=== PATIENT | female | born 1970 | race Caucasian/White ===

== ENCOUNTER → 2021-05-24 15:02 | Outpatient (CLI) | payer OTHER, SELFPAY ==
--- NOTE | ~2021-05-24 | XR_ITS ---
XR abdomen/kub 1V DATE: 05/24/2021 15:51 INDICATION: Flank pain TECHNIQUE: AP projection, 2 views COMPARISON: None FINDINGS: Some left-sided calcified pelvic phleboliths are noted. No apparent urinary tract calcified calculus is identified. Noncontrast CT abdomen pelvis examination would be more sensitive for detection of urinary tract stones. The psoas shadows are intact. No visceromegaly is evident. The bowel gas pattern is unremarkable, without evidence of obstruction. Included skeletal structures are unremarkable. IMPRESSION: Nonspecific abdomen Reviewed, dictated and finalized at [facility]. Reviewed, dictated and finalized at location B. IMPRESSION: Nonspecific abdomen
== END ==
PROVIDERS: Visit Provider Nurse Practitioner Adult Health
DX: R10.9 Unspecified abdominal pain (principal)
CPT/HCPCS: 74018

== ENCOUNTER 2021-06-01 12:26 | Outpatient (CLI) | payer OTHER, SELFPAY ==
--- NOTE | ~2021-06-01 | NM_ITS ---
. EXAMINATION: JAMES wan renal scan DATE: 06/01/2021 13:53 INDICATION: Bilateral hydronephrosis. TECHNIQUE: 8 mCi Tc-99m MAG3 was administered IV. 40 mg furosemide was administered IV immediately a fterward. The patient was scanned in the supine position. A posterior abdominal radionuclide angiogra m was obtained. A subsequent time course of static images of the kidneys, ureters, and bladder was ob tained. COMPARISON: None FINDINGS: The posterior abdominal radionuclide angiogram and sequential static images show normal siz e, position, and morphology of the kidneys. Peak renal parenchymal uptake was 3 min in right kidney a nd 3 min in left kidney (normal peak 3-5 minutes). The relative early renal uptake was 52% on the ri ght and 48% on the left (<40% is abnormal). No abnormalities of the ureters or bladder are seen. T1/2 for clearance of activity from the right kidney and proximal collecting system was 8 minutes. T1/2 for clearance of activity from the left kidney and proximal collecting system was 9 minutes. Notes on interpretation: T1/2 <10 minutes is normal, 10-15 minutes is low grade obstruction of questi onable clinical significance, 15-20 minutes is partial obstruction that is likely clinically signific ant, >20 minutes is high grade obstruction. Note that false positives may be seen with supine positio rita, dehydration, severely dilated nonobstructed kidney, atonic collecting system, poor renal functi on, and chronic furosemide use. IMPRESSION: 1. Symmetric kidney function. 2. No delay in contrast clearance from either kidney to suggest fixed obstruction. Reviewed, dictated and finalized at location A. IMPRESSION: 1. Symmetric kidney function. 2. No delay in contrast clearance from either kidney to suggest fixed obstruct ion.
== END 2021-06-01 12:27 | disposition home or self-care (01) ==
LOC: ANHIMG 12:34
PROVIDERS: Visit Provider Nurse Practitioner Adult Health
DX: N13.30 Unspecified hydronephrosis (principal)
CPT/HCPCS: 78708; A9562; J1940

== ENCOUNTER 2022-01-03 13:34 | Outpatient (CLI) | payer OTHER, SELFPAY ==
--- NOTE | 2022-01-03 13:45 | ECG_ITS ---
Measurements Intervals [place] Rate: 63 P: 30 [place]: 165 QRS: -2 QRSD: 104 T: 22 QT: 400 QTc: 411 Interpretive Statements SINUS RHYTHM WITH SINUS ARRHYTHMIA POSSIBLE LEFT ATRIAL ENLARGEMENT [-0.1mV P WAVE IN V1/V2] LOW QRS VOLTAGE IN PRECORDIAL LEADS [QRS DEFLECTION < 1.0 mV IN CHEST LEADS] INCOMPLETE RIGHT BUNDLE BRANCH BLOCK [90+ ms QRS DURATION, TERMINAL R IN V1/V2, 40+ ms S IN I/aVL/V4/V5/V6] NO PREVIOUS ECG AVAILABLE FOR COMPARISON Electronically Signed On 01-03-2022 14:35:43 CDT by Scout Schuler M.D.
[2022-01-03 14:33] LABS: INR 1.1
[2022-01-03 14:34] LABS: Partial Thromboplastin Time 27.3 SECONDS (22.3-36.8)
== END 2022-01-03 13:35 | disposition home or self-care (01) ==
LOC: ANHSURGERY 13:37
PROVIDERS: PCP Internal Medicine; Visit Provider Urology
DX: Z01.812 Encounter for preprocedural laboratory examination (principal); N20.0 Calculus of kidney; I10 Essential (primary) hypertension; I45.10 Unspecified right bundle-branch block; Z51.81 Encounter for therapeutic drug level monitoring; Z79.899 Other long term (current) drug therapy
CPT/HCPCS: 36415; 85610; 85730; 87086; 87088; 93005

== ENCOUNTER 2022-01-07 04:26 | Day surgery (SDC) | payer OTHER, SELFPAY ==
[2022-01-03 10:04] VITALS: BMI 39.5
--- NOTE | 2022-01-03 10:29 | PC.NURSE ---
Report to the Outpatient Waiting Room, entrance under the green pavilion located off [facility], at time 8:00 on date 01/07/22. OR Time: 10:00. - You and your visitor will be asked a series of questions to screen for COVID 19 for your protection. - A mask is required within the hospital. One visitor will be allowed to accompany the patient into the hospital. Patients visitor will be instructed to remain with patient at all times or leave the building. We will allow the visitor to come back to the postoperative area when patient is ready. Preoperative COVID Testing Requirements: No COVID Test needed if: (proof is required; if not received patient will have Rapid Test prior to entry) - Patient has received COVID Vaccine at least 14 days prior to procedure date or - Patient has positive COVID test result within last 90 days of surgery date. COVID Test needed if above criteria is not met Patients may have clear liquids (water, carbonated beverages, clear teas, apple juice) until 3 hours prior to surgery (7:00) with a maximum of 20 ounces. - No food from midnight until time of surgery Take the following medications with a SIP of water the morning of surgery: ANASTROZOLE Medications to discontinue per physician: VITAMINS/SUPPLEMENTS Date to take last dose: 01/03/21 Please no make-up, nail egyptian, hairspray, perfume, deodorant, or body powder the day of surgery. No jewelry (including any body piercings) or valuables the day of surgery, leave them at home. Please take a shower or bath the night before, or the morning of, surgery with an antibacterial soap. Wear comfortable, loose fitting clothing. - Jewelry must be removed prior to entering the operating room. Rings and piercings that are not removed may be cut off. - The hospital will not accept responsibility for valuables. - Please leave all valuables, including medications, at home the day of surgery. If you are going home after surgery, a licensed cl[place] driver must drive you home. - NO public transportation without another adult. - We recommend that an adult stay with you for 24 hours following discharge. - We also recommend that you do not drive, make important decision, drink alcoholic beverages, or take any drugs that were not prescribed by your health care provider for at least 24 hours after your discharge time. Follow any additional instructions given to you from your surgeon. Telephone instructions given to EMILY HARDEN and asked if any additional questions and then verbalized understanding. Patient advised to call surgeon office or pre surgery nurse liaison [phone] if any additional questions.
--- NOTE | 2022-01-03 17:10 | P.HP_ITS ---
History of Present Illness History of Present Illness Consent: Risks, benefits, and alternatives have been discussed and questions answered. Patient agrees to proceed with procedure. Chief complaint: Rt Kidney Stones, Bilateral Hydronephrosis Narrative: Ivania Yu is a 51 year old female with a known history of urolithiasis. Recent follow-up imaging 1st with a KUB suggested bilateral renal calcifications that were confirmed by CT scan. On outpatient CT scan she has several stones in her right kidney up to 9 mm in stones in her left kidney up to 5-6 mm. After discussion of therapeutic options she has elected for repeat ESWL starting on the right side. She is aware the risks including, but not limited to, adverse cardiopulmonary events, kidney injury, hematuria. Review of Systems Cardiovascular: Cardiovascular: Denies chest pain, Denies lightheadedness, Denies palpitations and Denies dyspnea Respiratory: Respiratory: Denies dyspnea Gastrointestinal: Gastrointestinal: Denies diarrhea, Denies nausea and Denies vomiting Genitourinary: Genitourinary: Denies hematuria and Denies dysuria Endocrine: Endocrine: Denies palpitations PMFSH Past Medical History Medical History Breast cancer Hypertension Kidney stones Skin cancer Surgical History Surgical History History of bladder surgery History of 1995, 1996 History of hysterectomy 2015 History of shoulder surgery Right Shoulder, 2013 Hx of tonsillectomy Family History Family History Mother Family history of diabetes mellitus in first degree relative Father Family history of lung cancer Sibling Family history of malignant neoplasm of brain Other Family history of cardiovascular disease Social History Social History Smoking status: Never smoker Alcohol intake: current Alcohol use details: VERY RARE Substance use: never Substance use type: does not use Spiritual care concerns: No Meds Home Medications and Allergies Home Medications Medication Instructions Recorded Confirmed Type anastrozole 1 mg tablet 1 mg PO DAILY 07/26/21 01/03/22 History cholecalciferol (vitamin D3) 25 25 mcg PO DAILY 07/26/21 01/03/22 History mcg (1,000 unit) capsule loratadine 10 mg tablet 10 mg PO DAILY 07/26/21 01/03/22 History multivit with 1 tablet PO DAILY 07/26/21 01/03/22 History ghyultkg-axjl-LM-lutein 8 mg iron-400 mcg-300 mcg tablet olmesartan 20 mg tablet 20 mg PO DAILY 07/26/21 01/03/22 History Allergies Allergy/AdvReac Type Severity Reaction Status Date / Time No Known Allergies Allergy Verified 01/03/22 10:00 Exam Const: General: no acute distress Resp: Effort & Inspection: normal respiratory effort GI: Inspection: non-distended GI Palp: No abdominal tenderness and No Guarding due to palpation present (GI) Auscultation: normal bowel sounds Assessment and Plan Assessment and plan (1) Bilateral renal stones: Code(s): N20.0 - Calculus of kidney Status: Acute Assessment and Plan: * Right ESWL
[2022-01-07] VITALS (7 sets, daily range): BP systolic 110–133; BP diastolic 59–72; PULSE 65–81; RESP 11–20; TEMP 36.4–36.6; O2SAT 96–100
--- NOTE | ~2022-01-07 | XR_ITS ---
EXAMINATION: XR abdomen/kub 1V DATE: 01/07/2022 08:01 INDICATION: Nephrolithiasis for planned extracorporeal shockwave lithotripsy TECHNIQUE: A supine view of the abdomen on 2 radiographs was obtained. COMPARISON: None. FINDINGS: There are at least 3 stones in the lower pole of the left kidney measuring 1 mm, 3 mm 6 mm . 7 mm and 2 mm stones at the lower pole of the right kidney. Unchanged pattern of a few small phleboliths in t he left hemipelvis. No dilated gas-filled loops of bowel. Lung bases are clear. IMPRESSION: 1. Bilateral nephrolithiasis. Reviewed, dictated and finalized at location A.
--- NOTE | 2022-01-07 06:49 | WPDHPUPDATE1 ---
History and Physical Update Update Date/Time: 01/07/22 06:49 History and Physical has been reviewed, including an updated exam of the patient. There are NO changes in the patient's condition. Risks, benefits, and alternatives have been discussed and questions answered. Patient agrees to proceed with procedure.
[2022-01-07] MEDS: LACTATED RINGERS 1,000 ML 30 ML IV CONT ×2 (08:25→10:06)
--- NOTE | 2022-01-07 08:48 | WPDANESEPPF ---
Anes - Initial Pre Proc Eval Procedure: Operation Date: 01/07/22 10:00 Proposed Procedures p Right Renal Extracorporeal Shock Wave Lithotripsy - Ulices Mcknight MD Date/Time: 01/07/22 08:48 Surgeon: Ulices Mcknight MD Pre Op Diagnosis: Rt Kidney Stones, Bilateral Hydronephrosis Patient Data Age: 51 Gender: F Height: 1.68 m Weight: 110.2 kg Last Vital Signs Temp 36.6 C 01/07/22 08:12 Pulse 80 01/07/22 08:12 Resp 20 01/07/22 08:12 BP 116/70 01/07/22 08:12 Pulse Ox 97 01/07/22 08:12 Allergies Allergy/AdvReac Type Severity Reaction Status Date / Time No Known Allergies Allergy Verified 01/07/22 08:14 Home Medications Medication Instructions Recorded Confirmed Type anastrozole 1 mg tablet 1 mg PO DAILY 07/26/21 01/07/22 History cholecalciferol (vitamin D3) 25 25 mcg PO DAILY 07/26/21 01/07/22 History mcg (1,000 unit) capsule loratadine 10 mg tablet 10 mg PO DAILY 07/26/21 01/07/22 History multivit with 1 tablet PO DAILY 07/26/21 01/07/22 History nmkairuf-isga-ON-lutein 8 mg iron-400 mcg-300 mcg tablet olmesartan 20 mg tablet 20 mg PO DAILY 07/26/21 01/07/22 History Patient hx anesthesia problems: none Family hx anesthesia problems: none Results Review: All pre-operative results and documents have been reviewed as part of the pre-operative evaluation. [facility] Past Medical History Medical History Breast cancer Hypertension Kidney stones Skin cancer Surgical History Surgical History History of bladder surgery History of 1995, 1996 History of hysterectomy 2016 History of shoulder surgery Right Shoulder, 2013 Hx of tonsillectomy Family History Family History Mother Family history of diabetes mellitus in first degree relative Father Family history of lung cancer Sibling Family history of malignant neoplasm of brain Other Family history of cardiovascular disease Social History Social History Smoking status: Never smoker Alcohol intake: never Alcohol use details: VERY RARE Substance use: never Substance use type: does not use Living arrangements: with family Spiritual care concerns: No Anes - Eval Final PreProcedure Day of Procedure 01/07/22 08:48 Patient weight: morbidly obese Heart: regular rate and rhythm Lungs: clear to auscultation Airway: Mallampati scale class II Neurological: alert and oriented Last oral intake: >/= 8 hours ASA classification: III Emergent: no Anesthetic plan: proceed Anesthesia type and monitoring: general LMA and standard monitoring Results Review: All pre-operative results and documents have been reviewed as part of the pre-operative evaluation. Informed Consent: The patient's anesthetic plan and its attendant risks and benefits were discussed with the patient/family/POA. Questions were solicited and answers provided to the satisfaction of the patient/family/POA.
[2022-01-07] MEDS: ceFAZolin 2 GM/D5W 50 ML 2 GM/50 ML BAG IVPB (09:23)
--- NOTE | 2022-01-07 09:50 | W.PM.PROC2 ---
Procedure Note - Detailed Date of Procedure 01/07/22 Pre-op Diagnosis Bilateral renal stones Post-op Diagnosis Same Procedure Performed Right ESWL Surgeon Ulices Mcknight MD Description of Procedure The patient was brought to the operative suite where she was placed in the supine position on the Dornier lithotripsy table. The focal point of the lithotripter was placed at a 7mm (and nearby/contiguous 2mm) right lower calyceal calculus. A total of 2500 shocks were delivered at a power setting of 4. There appeared to be good fragmentation of the stone. The patient tolerated the procedure well and was taken to the recovery room in good condition. Estimated Blood Loss 0 Drains No Packing No Pathology None sent Complications No immediate complications Condition Stable Disposition PACU
--- NOTE | 2022-01-07 10:40 | SUR.PHASEI ---
1035- skin to right flank and back intact, no bruising, no open areas, without redness. pt without c/o pain. room air.
== END 2022-01-07 11:40 | disposition home or self-care (01) ==
PROVIDERS: PCP Internal Medicine; Visit Provider Urology
PROC: (CPT 50590; principal; 2022-01-07 10:00)
DX: N13.2 Hydronephrosis with renal and ureteral calculous obstruction (principal); Z85.3 Personal history of malignant neoplasm of breast; I10 Essential (primary) hypertension; E66.9 Obesity, unspecified; Z68.39 Body mass index [BMI] 39.0-39.9, adult
CPT/HCPCS: 50590; 36415; 74018; 85610; 85730; 87086; 87088; 93005; J0690; J1100; J2250; J2405; J2704; J3010; J7120

== ENCOUNTER 2022-01-20 10:02 | Outpatient (CLI) | payer OTHER, SELFPAY ==
--- NOTE | ~2022-01-20 | XR_ITS ---
EXAMINATION: XR abdomen/kub 1V DATE: 01/20/2022 10:16 INDICATION: Calculus of kidney. Bladder pain. TECHNIQUE: A supine view of the abdomen on 2 radiographs was obtained. COMPARISON: Abdomen radiographs 01/07/2022, 05/24/2021 FINDINGS: There are phleboliths in left pelvis. There are no dilated loops of bowel. There are 5 mm a nd 2 mm stones in left kidney. Right kidney is obscured by bowel. IMPRESSION: 1. Left kidney stones. Reviewed, dictated and finalized at location A. IMPRESSION: 1. Left kidney stones.
== END 2022-01-20 10:03 | disposition home or self-care (01) ==
LOC: ANHIMG 10:04
PROVIDERS: PCP Internal Medicine; Visit Provider Urology
DX: Z01.812 Encounter for preprocedural laboratory examination (principal); N20.0 Calculus of kidney
CPT/HCPCS: 74018

== ENCOUNTER 2022-08-15 07:14 | Outpatient (CLI) | payer OTHER, SELFPAY ==
--- NOTE | ~2022-08-15 | XR_ITS ---
EXAMINATION: XR abdomen/kub 1V DATE: 08/15/2022 07:31 INDICATION: Left kidney stone. TECHNIQUE: A supine view of the abdomen on 2 radiographs was obtained. COMPARISON: Abdomen radiographs 01/20/2022 FINDINGS: There are no dilated loops of bowel. There are phleboliths in left pelvis. The kidneys are obscured by bowel. There is a 6 mm stone in left kidney. There are gallstones in the gallbladder. IMPRESSION: 1. 6 mm stone in left kidney. 2. Cholelithiasis. Reviewed, dictated and finalized at location A.
== END 2022-08-15 07:15 | disposition home or self-care (01) ==
LOC: ANHIMG 07:17
PROVIDERS: PCP Internal Medicine; Visit Provider Urology
DX: N20.0 Calculus of kidney (principal); K80.20 Calculus of gallbladder without cholecystitis without obstruction
CPT/HCPCS: 74018

== ENCOUNTER 2023-08-21 09:24 | Outpatient (CLI) | payer OTHER, SELFPAY ==
--- NOTE | ~2023-08-21 | XR_ITS ---
XR abdomen/kub 1V 08/21/2023 09:48 INDICATION: Flank pain TECHNIQUE: KUB COMPARISON: 05/24/2021 FINDINGS: Bowel gas pattern is normal. There is no evidence of free air, mass, organomegaly, ascites or obstruction. No abnormal calculi are seen. The bones appear intact. There are pelvic phlebolith s on the left. The upper abdomen is excluded. IMPRESSION: 1: No acute abdominal abnormality identified. Reviewed, dictated and finalized at location A.
== END 2023-08-21 09:25 | disposition home or self-care (01) ==
PROVIDERS: PCP Physician Assistant Medical; Visit Provider Urology
DX: N20.0 Calculus of kidney (principal)
CPT/HCPCS: 74018

== ENCOUNTER 2024-04-16 12:05 | Outpatient (CLI) | payer OTHER, SELFPAY ==
--- NOTE | ~2024-04-16 | XR_ITS ---
Supine and upright views of the abdomen Clinical history: Renal stones COMPARISON: 08/21/2023 Findings: Bowel gas pattern is nonspecific. No evidence for obstruction or free air. 8mm left lower p ole renal stone present. No definite right renal stone.. Osseous structures are intact. Impression: 8 mm left lower pole renal stone. Reviewed, dictated and finalized at [facility]. Impression: 8 mm left lower pole renal stone.
== END 2024-04-16 12:06 | disposition home or self-care (01) ==
LOC: ANHIMG 12:06
PROVIDERS: PCP Physician Assistant Medical; Visit Provider Urology
DX: N20.0 Calculus of kidney (principal)
CPT/HCPCS: 74018

== ENCOUNTER 2024-04-18 10:52 | Outpatient (CLI) | payer OTHER, SELFPAY ==
--- NOTE | ~2024-04-18 | CT_ITS ---
EXAMINATION: CT abdomen pelvis wo con DATE: 04/18/2024 11:05 INDICATION: Bilateral nephrolithiasis TECHNIQUE: Computed tomography (CT) of the abdomen and pelvis was performed without intravenous contr ast. Automated exposure control and iterative reconstruction technique were employed. The dose-length product was 756.85 mGy-cm. COMPARISON: None FINDINGS: Calcified left lower lobe nodule, calcified left mediastinal lymph nodes and multiple small splenic c alcific lesions, all consistent with old granulomatous disease. Heart size is normal. Atherosclerotic coronary artery calcific location. No pericardial or pleural effusion. Multiple subcentimeter periph erally calcified gallstones in the otherwise normal-appearing gallbladder with no gallbladder dilatio n, wall thickening or pericholecystic inflammatory stranding to suggest acute cholecystitis. Liver is normal with no intrahepatic biliary ductal dilation. Pancreas and bilateral adrenal glands are staci l. Bilateral nephrolithiasis with at least 8 stones in the right kidney measuring up to [address] ones in the left kidney the largest measuring 5 mm at the lower pole. No hydronephrosis in either kid juanito. There are couple 1 mm calcifications along the course of the mid and distal left ureter equivoca l for residual stones versus atherosclerotic calcifications or phleboliths. Bladder is normal. The ut erus is not identified and has likely been surgically resected. Bowels including the appendix are nor mal. No free intraperitoneal gas or fluid. No pathologically enlarged abdominal or pelvic lymphadenop athy. Severe lumbosacral spondylosis with mild spondylosis of the more cephalad lumbar and lower thor acic spine. T10 hemangioma. Moderate bilateral sacroiliac osteoarthritis. IMPRESSION: 1. Bilateral nephrolithiasis without hydronephrosis. A couple 1 mm calcification along the course of the mid and distal left ureter equivocal for nonobstructing ureteral stones versus atherosclerotic ca lcifications or phleboliths. 2. Cholelithiasis. Reviewed, dictated and finalized at location B. IMPRESSION: 1. Bilateral nephrolithiasis without hydronephrosis. A couple 1 mm calcificatio n along the course of the mid and distal left ureter equivocal for nonobstructi ng ureteral stones versus atherosclerotic calcifications or phleboliths. 2. Cholelithiasis.
== END 2024-04-18 10:53 ==
PROVIDERS: PCP Physician Assistant Medical; Visit Provider Urology
DX: N20.0 Calculus of kidney (principal)
CPT/HCPCS: 74176

== ENCOUNTER 2024-04-23 08:00 | Outpatient (CLI) | payer OTHER, SELFPAY ==
--- NOTE | 2024-04-23 08:06 | ECG_ITS ---
Test Date: 2024-04-23 08:18:18 Measurements Intervals [place] Rate: 94 P: 29 [place]: 163 QRS: 1 QRSD: 104 T: 29 QT: 336 QTc: 421 Interpretive Statements SINUS RHYTHM LOW QRS VOLTAGE IN PRECORDIAL LEADS INCOMPLETE RIGHT BUNDLE BRANCH BLOCK BASELINE ARTIFACT- I, II, III, AVR, AVL, AVF BORDERLINE ECG No previous ECG available for comparison Electronically Signed On 04-23-2024 08:30:38 CDT by Vince Dave D.O.
[2024-04-23 08:58] LABS: INR 1.1; Prothrombin Time 14.8 Seconds (11.1-14.7)
[2024-04-23 08:59] LABS: Partial Thromboplastin Time 27.5 Seconds (22.3-36.8)
[2024-04-23 09:00] LABS: Anion Gap 7 mmol/L (4-12); Blood Urea Nitrogen 12 mg/dL (7-17); Calcium 9.2 mg/dL (8.4-10.2); Carbon Dioxide 28 mmol/L (22-30); Chloride 105 mmol/L (98-107); Estimated Glomerular Filt Rate > 60; Glucose 142 mg/dL (65-110); Potassium 4.3 mmol/L (3.4-5.0); Sodium 140 mmol/L (137-145)
== END 2024-04-23 08:01 | disposition home or self-care (01) ==
PROVIDERS: Anesthesiology; PCP Physician Assistant Medical; Visit Provider Urology
DX: N20.0 Calculus of kidney (principal); E11.9 Type 2 diabetes mellitus without complications; I10 Essential (primary) hypertension; Z01.818 Encounter for other preprocedural examination
CPT/HCPCS: 36415; 80048; 85610; 85730; 87086; 87088; 93005

== ENCOUNTER 2024-04-26 00:31 | Day surgery (SDC) | payer OTHER, SELFPAY ==
[2024-04-19 15:03] VITALS: BMI 34.2
--- NOTE | 2024-04-19 15:04 | PC.NURSE ---
Report to the Outpatient Waiting Room, entrance under the green pavilion located off [facility], at time _0830_ on date _[id number]_. Planned Procedure Time: _1030_. Time changes happen often and if your time is changed the preop area will call you the afternoon before. - You and your visitor will be asked to self-screen and do not enter if you have any COVID symptoms. - A mask is optional within the hospital at this time. Patients may have clear liquids (water, carbonated beverages, clear teas, apple juice) until 3 hours prior to surgery with a maximum of 20 ounces. - No food from midnight until time of surgery Take the following medications with a SIP of water the morning of surgery: ____None Patient declines to take celebrex morning of surgery. DO NOT STOP ANY OF YOUR OTHER PRESCRIPTION MEDICATIONS PRIOR TO SURGERY ?EXCEPT THE FOLLOWING Medications to discontinue per physician Vitamins Date to take last [id number] Please no make-up, nail hebrew, hairspray, perfume, deodorant, or body powder the day of surgery. No jewelry (including any body piercings) or valuables the day of surgery, leave them at home. Please take a shower or bath the night before, or the morning of, surgery with an antibacterial soap. Wear comfortable, loose fitting clothing. - Jewelry must be removed prior to entering the operating room. Rings and piercings that are not removed may be cut off. - The hospital will not accept responsibility for valuables. - Please leave all valuables, including medications, at home the day of surgery. If you are going home after surgery, a licensed patrol driver must drive you home. - NO public transportation without another adult if you receive anesthesia. - We recommend that an adult stay with you for 24 hours following discharge. - We also recommend that you do not drive, make important decision, drink alcoholic beverages, or take any drugs that were not prescribed by your health care provider for at least 24 hours after your discharge time. Follow any additional instructions given to you from your surgeon. If you or anyone in your household have experienced Covid symptoms in the past week, please notify your surgeon or the nurse liaison at the phone number below for possible testing. Telephone instructions given to _Ivania____and asked if any additional questions and then verbalized understanding. Patient advised to call surgeon office or pre surgery nurse liaison [phone] if any additional questions.
--- NOTE | 2024-04-24 06:53 | PM.HPGS ---
History of Present Illness History of Present Illness Consent: Risks, benefits, and alternatives have been discussed and questions answered. Patient agrees to proceed with procedure. Chief complaint: left ureteral stone Narrative: Ivania Yu is a 54 year old female with a history of recurrent urolithiasis. She has had a known stone in her left kidney which has now grown to 8 mm and become somewhat symptomatic. After discussion of options she is elected for left ESWL. She is aware of the risks including, but not limited to, need for additional procedures, hematuria and perinephric hematoma Review of Systems Review of Systems: All systems reviewed & are unremarkable except as noted in HPI and below PMFSH Past Medical History Medical History (Updated 04/24/24 @ 06:54 by Ulices Mcknight MD) Bilateral renal stones Breast cancer invasive ductal cancer, s/p radiation, no chemo Cholelithiasis Diabetes mellitus Hypertension Skin cancer Surgical History Surgical History (Updated 02/06/24 @ 09:48 by Annel Alicea PA-C) History of bladder surgery bladder sling History of 1995, 1996 History of hysterectomy 2015 with bilateral oopherectomy History of shoulder surgery Right Shoulder, 2013 Hx of tonsillectomy Family History Family History Mother Family history of diabetes mellitus in first degree relative Father Family history of lung cancer Sibling Family history of malignant neoplasm of brain Other Family history of cardiovascular disease Social History Social History Smoking status: Never smoker Alcohol intake: current Alcohol use details: VERY RARE Substance use: never Substance use type: does not use Lack of Transportation: No Lack of Food: Never True Current Housing: I Have Housing Concerned About Future Housing: No Difficulty Paying Gas/Electric Bills: No Difficulty Paying for Meds: No Currently Unemployed: No Difficulty w/ Childcare or Family Care: No Living arrangements: with family Occupation/Education: occupation Gender identity (if verbalized by the patient): Female Sexual Orientation (if Verbalized by the Patient): Straight or Heterosexual Spiritual care concerns: No Meds Home Medications and Allergies Home Medications Medication Instructions Recorded Confirmed Type anastrozole 1 mg tablet 1 mg PO DAILY 07/26/21 04/19/24 History cholecalciferol (vitamin D3) 25 25 mcg PO DAILY 07/26/21 04/19/24 History mcg (1,000 unit) capsule fjwdxugp-vrwv-vygg 8 mg-folic 400 1 tablet PO DAILY 07/26/21 04/19/24 History mcg-K 50 mcg-lutein 300 mcg tablet (Centrum Silver Women) celecoxib 200 mg capsule 200 mg PO DAILY 02/06/24 04/19/24 History metformin 500 mg tablet,extended 500 mg PO DAILY #90 tabs 02/06/24 04/19/24 Rx release 24 hr olmesartan 20 mg tablet See Rx Instructions .Route 02/06/24 04/19/24 Rx .COMPLEX #90 tabs semaglutide 1 mg/dose (4 mg/3 mL) 1 mg (0.75 mL) subcut WEEKLY #3 mL 03/26/24 04/19/24 Rx subcutaneous pen injector (Ozempic) azelastine 137 mcg (0.1 %) nasal 1 spray intranasal Q12H PRN 04/19/24 04/19/24 History spray Allergy Symptoms calcium citrate 315 mg 1 tablet PO DAILY 04/19/24 04/19/24 History calcium-vitamin D3 6.25 mcg (250 unit) tablet (Citracal + Vitamin D Maximum) Allergies Allergy/AdvReac Type Severity Reaction Status Date / Time No Known Allergies Allergy Verified 04/19/24 14:51 Exam Const: General: no acute distress Resp: Effort & Inspection: normal respiratory effort GI: Inspection: non-distended GI Palp: No abdominal tenderness and No Guarding due to palpation present (GI) Auscultation: normal bowel sounds Assessment and Plan Assessment and plan (1) Left renal stone: Code(s): N20.0 - Calculus of kidney Status: Acute As
[2024-04-26] VITALS (10 sets, daily range): BP systolic 99–134; BP diastolic 50–81; PULSE 75–91; RESP 14–18; TEMP 35.8–36.7; O2SAT 92–100
--- NOTE | ~2024-04-26 | XR_ITS ---
EXAMINATION: XR abdomen/kub 1V DATE: 04/26/2024 08:41 INDICATION: Kidney stone. TECHNIQUE: A supine view of the abdomen on 2 radiographs was obtained. COMPARISON: CT abdomen and pelvis 04/18/2024 FINDINGS: There are no dilated loops of bowel. There are phleboliths in the pelvis. There is a 7 mm s tone in left kidney lower pole. There are gallstones in the gallbladder. IMPRESSION: 1. 7 mm left kidney stone. 2. Cholelithiasis. Reviewed, dictated and finalized at location A.
--- NOTE | 2024-04-26 06:37 | WPDHPUPDATE1 ---
History and Physical Update Update Date/Time: 04/26/24 06:37 History and Physical has been reviewed, including an updated exam of the patient. There are NO changes in the patient's condition. Risks, benefits, and alternatives have been discussed and questions answered. Patient agrees to proceed with procedure.
[2024-04-26] MEDS: LACTATED RINGERS 1,000 ML 30 ML IV CONT (09:00)
[2024-04-26 09:02] LABS: Glucose Point of Care 132 mg/dl (65-105)
--- NOTE | 2024-04-26 09:45 | WPDANESEPPF ---
Anes - Initial Pre Proc Eval Procedure: Operation Date: 04/26/24 10:30 Proposed Procedures p Left Ureteral Extracorporeal Shock Wave Lithotripsy - Ulices Mcknight MD Date/Time: 04/26/24 09:45 Surgeon: Ulices Mcknight MD Pre Op Diagnosis: left ureteral stone Patient Data Age: 54 Gender: F Height: 1.68 m Weight: 96.4 kg Last Vital Signs Temp 35.8 C L 04/26/24 09:15 Pulse 91 04/26/24 09:15 Resp 16 04/26/24 09:15 BP 118/69 04/26/24 09:15 Pulse Ox 99 04/26/24 09:15 O2 Del Method Room Air 04/26/24 09:15 Allergies Allergy/AdvReac Type Severity Reaction Status Date / Time No Known Allergies Allergy Verified 04/26/24 08:30 Home Medications Medication Instructions Recorded Confirmed Type anastrozole 1 mg tablet 1 mg PO DAILY 07/26/21 04/26/24 History cholecalciferol (vitamin D3) 25 25 mcg PO DAILY 07/26/21 04/26/24 History mcg (1,000 unit) capsule ygwlnvrb-jcyh-ilvl 8 mg-folic 400 1 tablet PO DAILY 07/26/21 04/26/24 History mcg-K 50 mcg-lutein 300 mcg tablet (Centrum Silver Women) celecoxib 200 mg capsule 200 mg PO DAILY 02/06/24 04/26/24 History metformin 500 mg tablet,extended 500 mg PO DAILY #90 tabs 02/06/24 04/26/24 Rx release 24 hr olmesartan 20 mg tablet See Rx Instructions .Route 02/06/24 04/26/24 Rx .COMPLEX #90 tabs semaglutide 1 mg/dose (4 mg/3 mL) 1 mg (0.75 mL) subcut WEEKLY #3 mL 03/26/24 04/26/24 Rx subcutaneous pen injector (Ozempic) azelastine 137 mcg (0.1 %) nasal 1 spray intranasal Q12H PRN 04/19/24 04/26/24 History spray Allergy Symptoms calcium citrate 315 mg 1 tablet PO DAILY 04/19/24 04/26/24 History calcium-vitamin D3 6.25 mcg (250 unit) tablet (Citracal + Vitamin D Maximum) Laboratory Tests 04/26/24 09:01 POC Capillary Glucose 132 H mg/dl (65-105) Patient hx anesthesia problems: none Family hx anesthesia problems: none Results Review: All pre-operative results and documents have been reviewed as part of the pre-operative evaluation. [facility] Past Medical History Medical History Bilateral renal stones Breast cancer invasive ductal cancer, s/p radiation, no chemo Cholelithiasis Diabetes mellitus Hypertension Skin cancer Surgical History Surgical History History of bladder surgery bladder sling History of 1995, 1996 History of hysterectomy 2015 with bilateral oopherectomy History of shoulder surgery Right Shoulder, 2013 Hx of tonsillectomy Family History Family History Mother Family history of diabetes mellitus in first degree relative Father Family history of lung cancer Sibling Family history of malignant neoplasm of brain Other Family history of cardiovascular disease Social History Social History Smoking status: Never smoker Alcohol intake: current Alcohol use details: VERY RARE Substance use: never Substance use type: does not use Lack of Transportation: No Lack of Food: Never True Current Housing: I Have Housing Concerned About Future Housing: No Difficulty Paying Gas/Electric Bills: No Difficulty Paying for Meds: No Currently Unemployed: No Difficulty w/ Childcare or Family Care: No Living arrangements: with family Occupation/Education: occupation Gender identity (if verbalized by the patient): Female Sexual Orientation (if Verbalized by the Patient): Straight or Heterosexual Spiritual care concerns: No Anes - Eval Final PreProcedure Day of Procedure 04/26/24 09:45 Patient weight: obese Heart: regular rate and rhythm Lungs: clear to auscultation Airway: Mallampati scale class II Neurological: alert and oriented Last oral intake: >/= 8 hours ASA classification: III Emergent: no Anesthetic plan
[2024-04-26] MEDS: ceFAZolin 2 GM/D5W 50 ML 2 GM/50 ML BAG IVPB (10:20)
--- NOTE | 2024-04-26 10:38 | W.PM.PROC2 ---
Procedure Note - Detailed Date of Procedure 04/26/24 Pre-op Diagnosis Left renal stone Post-op Diagnosis Same Procedure Performed Left ESWL Surgeon Ulices Mcknight MD Anesthesia General Description of Procedure The patient was brought to the operative suite where she was placed in the supine position on the Dornier lithotripsy table. The focal point of the lithotripter was placed at a 7-8mm left lower pole calculus. A total of 2500 shocks were delivered at a power setting of 4. There appeared to be good fragmentation of the stone. The patient tolerated the procedure well and was taken to the recovery room in good condition. Drains No Packing No Pathology None sent Complications No immediate complications Condition Stable
[2024-04-26] MEDS: fentaNYL CITRATE INJ (*CRX) 100 MCG/2 ML VIAL 25 MCG IV PUSH ×5 (11:45→12:59)
[2024-04-26] MEDS: oxyCODONE HCL (*CRX) 5 MG TAB IR PO (13:00)
== END 2024-04-26 13:41 | disposition home or self-care (01) ==
PROVIDERS: PCP Physician Assistant Medical; Visit Provider Urology
PROC: (CPT 50590; principal; 2024-04-26 10:30)
DX: N20.0 Calculus of kidney (principal); K80.20 Calculus of gallbladder without cholecystitis without obstruction; I10 Essential (primary) hypertension; E11.9 Type 2 diabetes mellitus without complications; E66.9 Obesity, unspecified; Z68.34 Body mass index [BMI] 34.0-34.9, adult; Z79.84 Long term (current) use of oral hypoglycemic drugs; Z79.85 Long-term (current) use of injectable non-insulin antidiabetic drugs; Z98.890 Other specified postprocedural states; Z85.3 Personal history of malignant neoplasm of breast; Z92.3 Personal history of irradiation; Z85.828 Personal history of other malignant neoplasm of skin; Z80.1 Family history of malignant neoplasm of trachea, bronchus and lung; Z80.8 Family history of malignant neoplasm of other organs or systems; Z82.49 Family history of ischemic heart disease and other diseases of the circulatory system
CPT/HCPCS: 50590; 36415; 74018; 80048; 82948; 85610; 85730; 87086; 93005; A9270; J0690; J1100; J2250; J2405; J2704; J3010; J7120

== ENCOUNTER 2024-05-10 07:56 | Outpatient (CLI) | payer OTHER, SELFPAY ==
--- NOTE | ~2024-05-10 | XR_ITS ---
XR abdomen/kub 1V Ordering provider: Ulices Mcknight MD History: . N20.0 - Calculus of kidney, FOLLOW UP . Comparison: April 26, 2024 FINDINGS: BOWEL: Nonobstructive bowel gas pattern. ORGANOMEGALY: None. SIGNIFICANT PATHOLOGIC CALCIFICATIONS: Calcifications in the right upper quadrant most likely gallbl adder stones. Calcific area over the left renal area which may be a stone with overlapping artifact. Oblique views are CT is advised. OTHER: No free air is seen under the diaphragm. Degenerative the spine. IMPRESSION: NO ACUTE ABDOMINAL FINDINGS. Cholelithiasis. Highly suggestive left kidney stone. Reviewed, dictated and finalized at location A.
== END 2024-05-10 07:57 | disposition home or self-care (01) ==
LOC: ANHIMG 07:59
PROVIDERS: PCP Physician Assistant Medical; Visit Provider Urology
DX: N20.0 Calculus of kidney (principal)
CPT/HCPCS: 74018

== ENCOUNTER 2024-07-10 05:53 | Day surgery (SDC) | payer OTHER, SELFPAY ==
[2024-06-14 14:12] VITALS: BMI 34.2
[2024-06-20 13:28] VITALS: BMI 35.6
[2024-07-10 06:21] VITALS: BP 135/77; PULSE 75; RESP 16; TEMP 36.3; O2SAT 99; BMI 33.4
[2024-07-10 06:39] LABS: Glucose Point of Care 102 mg/dl (65-105)
--- NOTE | 2024-07-10 07:09 | PM.HPGS ---
History of Present Illness History of Present Illness Consent: Risks, benefits, and alternatives have been discussed and questions answered. Patient agrees to proceed with procedure. Chief complaint: History of Colon Polyps Narrative: Ivania Yu is a 54 year old female presents for screening colonoscopy. Patient has a history of colon polyps. A sessile serrated adenoma was removed by colonoscopy in 2019. Patient current weight appetite and bowel movements are normal. Patient denies abdominal pain. She has had no bleeding. Family history is noncontributory. Review of Systems Review of Systems: All systems reviewed & are unremarkable except as noted in HPI and below PMFSH Past Medical History Medical History Bilateral renal stones Breast cancer invasive ductal cancer, s/p radiation, no chemo Cholelithiasis Diabetes mellitus Hypertension Skin cancer Surgical History Surgical History History of bladder surgery bladder sling History of 1995, 1996 History of hysterectomy 2015 with bilateral oopherectomy History of shoulder surgery Right Shoulder, 2012 Hx of tonsillectomy Family History Family History Mother Family history of diabetes mellitus in first degree relative Father Family history of lung cancer Sibling Family history of malignant neoplasm of brain Other Family history of cardiovascular disease Social History Social History Smoking status: Never smoker Alcohol intake: current Alcohol use details: OCCASIONAL Substance use: never Substance use type: does not use Lack of Transportation: No Lack of Food: Never True Current Housing: I Have Housing Concerned About Future Housing: No Difficulty Paying Gas/Electric Bills: No Difficulty Paying for Meds: No Currently Unemployed: No Difficulty w/ Childcare or Family Care: No Living arrangements: with family Occupation/Education: occupation Gender identity (if verbalized by the patient): Female Sexual Orientation (if Verbalized by the Patient): Straight or Heterosexual Spiritual care concerns: No Meds Home Medications and Allergies Home Medications Medication Instructions Recorded Confirmed Type anastrozole 1 mg tablet 1 mg PO DAILY 07/26/21 07/10/24 History cholecalciferol (vitamin D3) 25 25 mcg PO DAILY 07/26/21 07/10/24 History mcg (1,000 unit) capsule vbludrux-wvcu-zpgc 8 mg-folic 400 1 tablet PO DAILY 07/26/21 07/10/24 History mcg-K 50 mcg-lutein 300 mcg tablet (Centrum Silver Women) celecoxib 200 mg capsule 200 mg PO DAILY 02/06/24 07/10/24 History metformin 500 mg tablet,extended 500 mg PO DAILY #90 tabs 02/06/24 07/10/24 Rx release 24 hr azelastine 137 mcg (0.1 %) nasal 1 spray intranasal Q12H PRN 04/19/24 07/10/24 History spray Allergy Symptoms calcium citrate 315 mg 1 tablet PO DAILY 04/19/24 07/10/24 History calcium-vitamin D3 6.25 mcg (250 unit) tablet (Citracal + Vitamin D Maximum) olmesartan 20 mg tablet 20 mg PO DAILY 06/20/24 07/10/24 History semaglutide 1 mg/dose (4 mg/3 mL) 1 mg (0.75 mL) subcut WEEKLY #3 mL 07/05/24 07/10/24 Rx subcutaneous pen injector (Ozempic) Allergies Allergy/AdvReac Type Severity Reaction Status Date / Time No Known Allergies Allergy Verified 07/10/24 06:18 Vital Signs Vital Signs - 24 hr 07/10/24 06:21 Temperature 97.4 F L Pulse Rate 75 Respiratory Rate 16 Blood Pressure 135/77 Pulse Oximetry 99 Oxygen Delivery Room Air Exam Narrative: Physical exam reveals patient to be alert vital signs stable. HEENT exam is unremarkable. Patient is anicteric. Lungs are clear to auscultation and to percussion . Heart is without murmur or extra sounds. Abdomen bowel sounds are present soft
--- NOTE | 2024-07-10 07:12 | WPDANESEPPF ---
Anes - Initial Pre Proc Eval Procedure: Operation Date: 07/10/24 07:30 Proposed Procedures p Diagnostic Colonoscopy - Frank Ayala MD Date/Time: 07/10/24 07:12 Surgeon: Frank Ayala MD Pre Op Diagnosis: History of Colon Polyps Patient Data Age: 54 Gender: F Height: 1.68 m Weight: 94 kg Last Vital Signs Temp 36.3 C L 07/10/24 06:21 Pulse 75 07/10/24 06:21 Resp 16 07/10/24 06:21 BP 135/77 07/10/24 06:21 Pulse Ox 99 07/10/24 06:21 O2 Del Method Room Air 07/10/24 06:21 Allergies Allergy/AdvReac Type Severity Reaction Status Date / Time No Known Allergies Allergy Verified 07/10/24 06:18 Home Medications Medication Instructions Recorded Confirmed Type anastrozole 1 mg tablet 1 mg PO DAILY 07/26/21 07/10/24 History cholecalciferol (vitamin D3) 25 25 mcg PO DAILY 07/26/21 07/10/24 History mcg (1,000 unit) capsule qfuhmdpq-zcfg-phgg 8 mg-folic 400 1 tablet PO DAILY 07/26/21 07/10/24 History mcg-K 50 mcg-lutein 300 mcg tablet (Centrum Silver Women) celecoxib 200 mg capsule 200 mg PO DAILY 02/06/24 07/10/24 History metformin 500 mg tablet,extended 500 mg PO DAILY #90 tabs 02/06/24 07/10/24 Rx release 24 hr azelastine 137 mcg (0.1 %) nasal 1 spray intranasal Q12H PRN 04/19/24 07/10/24 History spray Allergy Symptoms calcium citrate 315 mg 1 tablet PO DAILY 04/19/24 07/10/24 History calcium-vitamin D3 6.25 mcg (250 unit) tablet (Citracal + Vitamin D Maximum) olmesartan 20 mg tablet 20 mg PO DAILY 06/20/24 07/10/24 History semaglutide 1 mg/dose (4 mg/3 mL) 1 mg (0.75 mL) subcut WEEKLY #3 mL 07/05/24 07/10/24 Rx subcutaneous pen injector (Ozempic) Laboratory Tests 07/10/24 06:34 POC Capillary Glucose 102 mg/dl (65-105) Patient hx anesthesia problems: none Family hx anesthesia problems: none Results Review: All pre-operative results and documents have been reviewed as part of the pre-operative evaluation. [facility] Past Medical History Medical History Bilateral renal stones Breast cancer invasive ductal cancer, s/p radiation, no chemo Cholelithiasis Diabetes mellitus Hypertension Skin cancer Surgical History Surgical History History of bladder surgery bladder sling History of 1995, 1996 History of hysterectomy 2015 with bilateral oopherectomy History of shoulder surgery Right Shoulder, 2013 Hx of tonsillectomy Family History Family History Mother Family history of diabetes mellitus in first degree relative Father Family history of lung cancer Sibling Family history of malignant neoplasm of brain Other Family history of cardiovascular disease Social History Social History Smoking status: Never smoker Alcohol intake: current Alcohol use details: OCCASIONAL Substance use: never Substance use type: does not use Lack of Transportation: No Lack of Food: Never True Current Housing: I Have Housing Concerned About Future Housing: No Difficulty Paying Gas/Electric Bills: No Difficulty Paying for Meds: No Currently Unemployed: No Difficulty w/ Childcare or Family Care: No Living arrangements: with family Occupation/Education: occupation Gender identity (if verbalized by the patient): Female Sexual Orientation (if Verbalized by the Patient): Straight or Heterosexual Spiritual care concerns: No Anes - Eval Final PreProcedure Day of Procedure 07/10/24 07:12 Patient weight: obese Heart: regular rate and rhythm Lungs: clear to auscultation Airway: Mallampati scale class 1 Neurological: alert and oriented Last oral intake: >/= 8 hours ASA classification: III Emergent: no Anesthetic plan: proceed Anesthesia type and monitoring: general GIVS Results
[2024-07-10] MEDS: LACTATED RINGERS 1,000 ML 150 ML IV CONT (07:18)
[2024-07-10 07:40] VITALS: BP 125/76; PULSE 75; RESP 15; O2SAT 100
[2024-07-10 07:50] VITALS: BP 123/78; PULSE 67; RESP 16; O2SAT 100
[2024-07-10 08:00] VITALS: BP 133/84; PULSE 72; RESP 16; O2SAT 100
--- NOTE | 2024-07-10 10:31 | WPDANESPN ---
Anes - Prog Note Post-Op Date/Time: 07/10/24 10:31 Cardiovascular status: normal Respiratory status: normal Airway patency: baseline Mental status: baseline Post-Op hydration status: normal Vital Signs: Last Vital Signs Temp 36.3 C L 07/10/24 06:21 Pulse 72 07/10/24 08:00 Resp 16 07/10/24 08:00 BP 133/84 07/10/24 08:00 Pulse Ox 100 07/10/24 08:00 O2 Del Method Room Air 07/10/24 08:00 Pain Score (VAS): 0 I/O: Intake & Output 07/09/24 07/10/24 07/10/24 23:59 07:59 15:59 Intake Total 100 Balance 100 07/10/24 06:34 POC Capillary Glucose 102 Post-procedural complaints: none Patient Feedback: Patient satisfied with anesthetic care.
== END 2024-07-10 08:10 | disposition home or self-care (01) ==
PROVIDERS: PCP Physician Assistant Medical; Visit Provider Internal Medicine Gastroenterology
PROC: 0DJD8ZZ Inspection of Lower Intestinal Tract, Via Natural or Artificial Opening Endoscopic (ICD-10-PCS; CPT 45378; principal; 2024-07-10 07:30)
DX: Z12.11 Encounter for screening for malignant neoplasm of colon (principal); K57.30 Diverticulosis of large intestine without perforation or abscess without bleeding; K64.8 Other hemorrhoids
CPT/HCPCS: 45378

== ENCOUNTER 2025-02-03 12:30 | Outpatient (RCR) | payer OTHER, SELFPAY ==
--- NOTE | 2024-12-05 16:35 | PTOPEVAL1 ---
Assessment and note entered by Stefani Escalera, PT Evaluation Information Assessment Status Evaluation Diagnosis weakness ICD-10 Condition Codes (PT) Difficulty Walking R26.2,Abnormalities of gait and mobility R26.9,Weakness R53.1 Other ICD-10 Condition Codes ( stiffness in L/R shoulders PT) Subjective Information Always has knee pain, usually gets injections but has been avoiding this due to other medical issues Main issue for therapy is weakness. Going up the stairs is hard, washing hair in shower is hard, walking a distance, lifting things over head, cannot lift a gallon off [employer] shelf , on hand strength to open things. Neck cracks a lot , and scares her because of what she has read on the internet. Co-morbidities of dermatomyositis can effect multiple systems Feels her arms and hands get tired but is only with overhead activities. Feels can walk 5 minutes before having to sit. 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 Reported Pain Level Pain Score 0: Self Report Assessment PT Clinical Summary Pt presents with main complaint of weakness especially of the UEs in overhead activities. Newly diagnosed with autoimmune disorder. She reports she has no strength with reaching above her shoulder, and her arms get tired with washing her hair and trying to braid her hair. She shows decreased ROM aida shoulders, globally decreased strength BUE shoulders, and arms, decreased glute med strength with gait abnormality. Pt will benefit from physical therapy in order to address deficits, educate patient in energy conservation and modification of activities to improve functional activity. Plan of Care Interventions Gait Training,Manual Therapy,Neuro Re-education, Patient/Caregiver Education,Therapeutic Activities ,Therapeutic Exercise,Self-Care/Home Management PT Services Indicated Yes Treatment Frequency and 1x weekly x 10 visits Duration These treatments will address the objective and functional deficits as defined above. The patient will be advanced safely and appropriately in order for the patient to progress towards his/her prior level of function. Additional exercises will be introduced and as well as a comprehensive home exercise program upon discharge, if needed, ?to ensure carryover of functional gains achieved in the clinic. This treatment plan has been reviewed and agreement upon by the patient.
--- NOTE | 2024-12-05 16:35 | OPREHPOC ---
Outpatient Therapy Plan of Care This is a Multidisciplinary Plan of Care that may contain components documented by all disciplines (PT, OT, and ST.) PT Problem 1 PT Problem #1 Knowledge Deficit PT Goal 1 Goal / Goal Update Pt will be independent in HEP Pt will verbalize understanding of diagnosis and prognosis Target Visit 5 PT Problem 2 PT Problem #2 Impaired Strength PT Goal 1 Goal / Goal Update Pt will demonstrate glutes medius strength of 3/5 Target Visit 5 PT Goal 2 Goal / Goal Update Pt will demonstrate BUE strength of 4/5 Target Visit 10 PT Problem 3 PT Problem #3 Impaired Endurance PT Goal 1 Goal / Goal Update Pt will report improved UE endurance with washing her hair and overhead activities Target Visit 10
--- NOTE | 2024-12-24 10:35 | PCPTNOTE ---
Patient called & cancelled scheduled appointment 12/23/24 due to illness
--- NOTE | 2025-02-04 09:20 | PTOPDC ---
Assessment and note entered by Stefani Escalera, PT Evaluation Information Assessment Status Discharge Diagnosis weakness ICD-10 Condition Codes (PT) Difficulty Walking R26.2,Abnormalities of gait and mobility R26.9,Weakness R53.1 Other ICD-10 Condition Codes ( stiffness in L/R shoulders PT) Subjective Information Pt reports going up stairs is going good, I can do it , can do this and is not winded. Doesn't carry items up- down the steps, washing hair is really good now, is better able to get the shower head down. Can lift gallon jug out of the refrigerator, and putting dishes overhead in a stack is challenging still. Hand strength is also much better. Was able to walk the zoo and walk/stand 3 hours and really didn't sit down during that time. Reported Pain Level Pain Score 0: Self Report Assessment PT Clinical Summary Pt has attended therapy consistently for overall weakness and decreased function. She shows great progress overall not only in strength, but in range in her UEs. She reports the most significant progress involving her endurance, which she is now able to wash her hair without feeling overly fatigued in the UEs, is able to stand longer, and was able to go to the zoo and walk around or standing for three hours without a sitting break. She has met all her functional goals, is highly motivated to continued independently, and is very happy with her progress. Thus she is being discharged from therapy for completion of POC. Plan of Care PT Services Indicated No
== END 2025-02-04 09:28 | disposition home or self-care (01) ==
LOC: ANHHIPT 12:30
PROVIDERS: PCP Physician Assistant Medical; Visit Provider Physician Assistant Medical
DX: R53.1 Weakness (principal); M33.13 Other dermatomyositis without myopathy
CPT/HCPCS: 97110; 97112; 97162; 97750

== ENCOUNTER 2025-04-02 17:20 | Outpatient (CLI) | payer OTHER, SELFPAY ==
--- NOTE | ~2025-04-02 | XR_ITS ---
Supine and upright views of the abdomen Clinical history: Renal stones COMPARISON: 05/10/2024 Findings: Bowel gas pattern is nonspecific. No evidence for obstruction or free air. Cholelithiasis n oted. No definite renal stone identified. Osseous structures are intact. Impression: No definite renal stones. Cholelithiasis. Reviewed, dictated and finalized at [facility]. Impression: No definite renal stones. Cholelithiasis.
--- OUTSIDE RECORDS SUMMARY | 2025-04-02 18:18 | XMS_ITS ---
Author Organization [facility] Address [address] [place] [address] Care Team Providers Care Human Factors Ergonomist Name Role Phone Jennifer Fisher MD Unavailable Jen Padgett MD Unavailable [phone] Annel Alicea Primary Care Provider [phone] Active Problems Problem Noted Date Diagnosed Date Kidney stone 08/02/2024 Primary osteoarthritis of both knees 08/03/2023 Osteopenia of lumbar spine 12/21/2022 Vitamin D deficiency 12/21/2022 Family history of breast cancer 12/21/2022 Encounter for screening mammogram for breast can cer 12/21/2022 Breast cancer screening, high risk patient 12/21 Encounter for monitoring aromatase inhibitor the rapy 04/12/2021 Encounter for follow-up surveillance of breast c ancer 07/14/2020 Malignant neoplasm of 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, estrogen receptor positive 05/08/2020 Cancer Staging:Pathologic stage from 05/25/2020:Stage IA(pT1mi, pN0(sn), cM0, G1, ER+, ID+, HER2-) - Signed by Jennifer Fisher MD on 06/05/2020 Basal cell carcinoma (BCC) of face 04/06/2016 Current Treatment and Therapy Plans No current plan information found. Past Treatment and Therapy Plans No past plan information found. Radiation Treatments * Course C1 R BREAST 201907/10/2020 - 07/16/2020 Treatment Period Energy Fraction Dose Fractions Total Dose Plans Planned R BREAST 07/10/2020 - 07/16/2020 520 5 / 2,600 Reference Points Delivered BURDEN DPV 07/10/2020 - 07/16/2020 2,600 Resolved Problems Problem Noted Date Diagnosed Date Resolved Date Encounter to discuss treatment options 07/14/2020 12/25/2024
--- OUTSIDE RECORDS SUMMARY | 2025-04-02 18:18 | XMS_ITS | Clinical Summary ---
Author Organization [facility] Address [address] [place] [address] Care Team Providers Care Car Coupler Name Role Phone Jennifer Fisher MD Unavailable Jen Padgett MD Unavailable [phone] Annel Alicea Primary Care Provider [phone] Allergies No known active allergies Medications fluticasone propionate (FLONASE) 50 mcg/actuation nasal spray as needed Active azelastine (ASTELIN) 137 mcg (0.1 %) nasal spray 0 Active metroNIDAZOLE (METROGEL) 0.75 % gel as needed 0 Active ergocalciferol, vitamin D2, (VITAMIN D2 ORAL) Take by mouth Active olmesartan (BENICAR) 20 mg tablet 0 Active metFORMIN (GLUCOPHAGE) 500 mg tablet 3 Active cholecalciferol 25 mcg (1,000 unit) tablet Take by mouth Act shital predniSONE (DELTASONE) 10 mg tablet Take 1 tablet (10 mg) by mouth daily Active famotidine (PEPCID) 20 mg tablet Take 1 tablet (20 mg total) by mouth 2 (two) times a day 5 Active clobetasoL (TEMOVATE) 0.05 % ointment Apply 0.05 Applications topically 2 (two) times a day 5 Active hydroxychloroqu ine (PLAQUENIL) 200 mg tablet Take 1 tablet (200 mg total) by mouth 2 (two) times a day 5 Active gentamicin (GARAMYCIN) 0.1 % ointment Apply topically 3 (three) times a day 15 g 1 5 Active anastrozole (ARIMIDEX) 1 mg tabletIndicatio ns:Malignant neoplasm of right female breast, unspecified estrogen receptor status, unspecified site of breast (HCC) TAKE 1 TABLET DAILY 90 tablet 1 5 Active Active Problems Problem Noted Date Diagnosed Date [...] from 05/25/2020:Stage IA(pT1mi, pN0(sn), cM0, G1, ER+, NV+, HER2-) - Signed by Jennifer Fisher MD on 06/05/2020 Basal cell carcinoma (BCC) of face 04/06/2016 Resolved Problems Problem Noted Date Diagnosed Date Resolved Date Encounter to discuss treatment options 07/14/2020 12/25/2024 Encounters Date Type Department Care Team Description 01/23/2025 1:45 PM CDT Office Visit [facility] Rheumatology at [place] [id number] [facility] [address] [place] [address] Aliyah Sheth MD 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, adult onset (HCC) (Primary Dx); Loose stools; Encounter for medication monitoring from Last 3 Months Immunizations Immunization Administration Dates Next Due COVID-19 mRNA ([employer]) 0.3 m L (30 mcg) vaccine (12 years and up) 07/28/2023 Influenza, Quadrivalent, Spl it, Preservative Free, Intramuscular 07/28/2023,09/01/2022,09/07/2021,09/01 Influenza, Unspecified 07/25/2024 Moderna SARS-CoV-2 Monovalen t Vaccination (12+ YRS) 01/20/2021,12/23/2020 Pfizer SARS-CoV-2 Monovalent Vaccination (12+ Yrs) PURPLE 09/07/2021 ZOSTER Recombinant 03/04/2020,12/27/2019 Surgical History Surgery Date Site/Laterality Comments OTHER SURGICAL HISTORY ectopic pregnacy 1994 SECTION x2 SHOULDER ARTHROSCOPY 10/23/2012 - 10/22/2013 Right TOTAL ABDOMINAL HYSTERECTOMY W/ BILATERAL SALPINGOOPHORECTOMY BREAST BIOPSY 04/22/2020 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 BREAST BIOPSY 05/08/2020 Right TONSILLECTOMY 10/23/1988 - 10/22/1989 LIPOMA RESECTION WISDOM TOOTH EXTRACTION MASTECTOMY, PARTIAL 05/25/2020 Right LITHOTRIPSY 04/22/2024 Right LITHOTRIPSY 10/23/2021 - 10/22/2022 Left Medical History Medical History Date Comments Hypertension Skin cancer Dermatomyositis (HCC) Family History Medical History Relation Name Comments Brain cancer Brother Lung cancer Father Breast cancer Sister Relation Name Status Comments Brother Father Mother Sister Social History Tobacco Use Types Packs/Day Years Used Date Smoking Tobacco: Never Smokeless Tobacco: Never Tobacco Cessation:Counseling Given: Not Answered Alcohol Use Standard Drinks/Week Comments Yes 0 (1 standard drink = 0.6 oz pur e alcohol) rare Comments No Sex and Gender Information Value Date Recorded Sex Assigned at Not on file Legal Sex Female 11:27 AM CARPET SEWING MACHINE OPERATOR Gender Identity Not on file Sexual Orientation Not on file Obstetrics History Last Filed Vital Signs Vital Sign Reading Time Taken Comments Blood Pressure 126/76 01/23/2025 1:23 PM CDT Pulse 83 01/23/2025 1:23 PM CDT Temperature 36.3 C (97.4 F) 12/26/2024 1:40 PM CARPET SEWING MACHINE OPERATOR Respiratory Rate 18 12/26/2024 1:40 PM CARPET SEWING MACHINE OPERATOR Oxygen Saturation 99% 01/23/2025 1:23 PM CDT Inhaled Oxygen Concentration - - Weight 82.1 kg (181 lb) 01/23/2025 1:23 PM CDT Height 165.1 cm (5' 5) 01/23/2025 1:23 PM CDT Body Mass Index 30.12 01/23/2025 1:23 PM CDT Plan of Treatment Health Maintenance Due Date Last Done Comments Colon Cancer Screening-Colonoscopy 1968 Depression Screening 1968 DTaP/Tdap/Td Vaccine (1 - Tdap) 1979 Hepatitis B Screening 1986 Regular Well Visit/Exam 18-64 1986 Pneumococcal vaccine <65 (1 of 2 - PCV) 1987 Covid-19 Vaccine (8 2023-2 5 season) 2024 07/28/2023, 09/01/2022, 04/01/2022, Additional history exists Breast Cancer Screening-Mammogram 08/02/2025 08/02/2024, 08/01/2023, 07/19/2022, Additional history exists Zoster Vaccine Completed 03/04/2020, 12/27/2019 Influenza Vaccine Completed 07/25/2024, , 09/01/2022, Additional history exists Hepatitis C Screening Completed 12/26/2024 Procedures Procedure Name Priority Date/Time Associated Diagnosis Comments HEPATITIS C ANTIBODY Routine 12/26/2024 8:39 PM CARPET SEWING MACHINE OPERATOR 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 Does NOT exclude the possibility of recent exposure to HCV. Equivocal: Equivocal for HCV antibodies. Supplemental molecular testing will be automatically performed to determine infection status in accordance with current CDC screening recommendations. Reactive: Positive for HCV antibodies. This may represent current or past HCV infection. Supplemental molecular testing will be automatically performed to determine current infection status in accordance with current CDC screening recommendations. Interpretive data was last revised on 2020. Blood 12/26/2024 8:39 PM CARPET SEWING MACHINE OPERATOR 12/26/2024 8:39 PM CARPET SEWING MACHINE OPERATOR us Aliyah Sheth MD LAB MICROBIOLOGY - GENERAL ORDERABLES Final Result [facility] Gisselle Corrigan Vinicius Department [place] [address] * Screening Mammogram Bilateral W Artemio (08/02/2024 9:23 AM CDT) Anatomical Region Laterality Modality Breast Bilateral Mammography Narrative 08/04/2024 3:10 PM CDT Mammogram Technique: Bilateral Digital Breast Tomosynthesis, Bilateral C-view 2D Screening mammogram. Views obtained: bilateral craniocaudal and bilateral mediolateral oblique. Computer Aided Detection was performed. Mammogram Findings: The present examination has been compared to prior imaging studies performed at [facility] on 07/13/2021, 07/19/2022 and 08/01/2023. There are scattered areas of fibroglandular density. There are post breast conservation therapy changes in the right breast. There is no suspicious abnormality in either breast. Impression: There is no mammographic evidence of malignancy. Annual screening mammography is recommended. OVERALL FINAL ASSESSMENT: BI-RADS CATEGORY 2: Benign. Procedure Note Jonny Dove MD - 08/04/2024 Mammogram Technique: Bilateral Digital Breast Tomosynthesis, Bilateral C-view 2D Screening mammogram. Views obtained: bilateral craniocaudal and bilateral mediolateral oblique. Computer Aided Detection was performed. Mammogram Findings: The present examination has been compared to prior imaging studies performed at [facility] on 07/13/2021, 07/19/2022 and 08/01/2023. There are scattered areas of fibroglandular density. There are post breast conservation therapy changes in the right breast. There is no suspicious abnormality in either breast. Impression: There is no mammographic evidence of malignancy. Annual screening mammography is recommended. OVERALL FINAL ASSESSMENT: BI-RADS CATEGORY 2: Benign. us Jen Padgett MD IMG MAMMO PROCEDURES Fi nal Result from Last 3 Months or Most Recently Relevant to Health Maintenance Insurance CIG[employer] OPEN [facility]ESS [facility] [place] [id number] CIGPAPI SUREFIT CIGNA OPEN ACCESS [facility]LY [facility] OPEN ACCESS Care Teams Car Coupler Relationship Specialty Start Date End Date Annel Alicea PA [address] [place] [address] PCP - General Family Practice 07/19/23 Jennifer Fisher MD [address] [employer] [address] [place] [address] Radiation Oncologist Radiation Oncology 06/05/20 Jen Padgett MD [address] [place] [address] Surgeon Surgical Oncology 06/05/20
--- OUTSIDE RECORDS SUMMARY | 2025-04-02 18:18 | XMS_ITS | Referral Summary ---
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, adult onset (HCC) (Primary Dx); Loose stools; Encounter for medication monitoring from Last 3 Months Allergies No known active allergies Medications fluticasone [...] from 05/25/2020:Stage IA(pT1mi, pN0(sn), cM0, G1, ER+, SD+, HER2-) - Signed by Jennifer Fisher MD on 06/05/2020 Basal cell carcinoma (BCC) of face 04/06/2016 Resolved Problems Problem Noted Date Diagnosed Date Resolved Date Encounter to discuss treatment options 07/14/2020 12/25/2024 Immunizations Immunization Administration Dates Next Due COVID-19 mRNA ([employer]) 0.3 m L (30 mcg) vaccine (12 years and up) 07/28/2023 Influenza, Quadrivalent, Spl it, Preservative Free, Intramuscular 07/28/2023,09/01/2022,09/07/2021,09/01 Influenza, Unspecified 07/25/2024 Moderna SARS-CoV-2 Monovalen t Vaccination (12+ YRS) 01/20/2021,12/23/2020 Pfizer SARS-CoV-2 Monovalent Vaccination (12+ Yrs) PURPLE 09/07/2021 ZOSTER Recombinant 03/04/2020,12/27/2019 Social History Tobacco Use Types Packs/Day Years Used Date Smoking Tobacco: Never Smokeless Tobacco: Never Tobacco Cessation:Counseling Given: Not Answered Alcohol Use Standard Drinks/Week Comments Yes 0 (1 standard drink = 0.6 oz pur e alcohol) rare Comments No Sex and Gender Information Value Date Recorded Sex Assigned at Not on file Legal Sex Female 11:27 AM LOT TECHNICIAN Gender Identity Not on file Sexual Orientation Not on file Last Filed Vital Signs Vital Sign Reading Time Taken Comments Blood Pressure 126/76 01/23/2025 1:23 PM CDT Pulse 83 01/23/2025 1:23 PM CDT Temperature 36.3 C (97.4 F) 12/26/2024 1:40 PM LOT TECHNICIAN Respiratory Rate 18 12/26/2024 1:40 PM LOT TECHNICIAN Oxygen Saturation 99% 01/23/2025 1:23 PM CDT Inhaled Oxygen Concentration - - Weight 82.1 kg (181 lb) 01/23/2025 1:23 PM CDT Height 165.1 cm (5' 5) 01/23/2025 1:23 PM CDT Body Mass Index 30.12 01/23/2025 1:23 PM CDT Plan of Treatment Not on file Procedures Procedure Name Priority Date/Time Associated Diagnosis Comments HEPATITIS C ANTIBODY Routine 12/26/2024 8:39 PM LOT TECHNICIAN 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 Blood 12/26/2024 8:39 PM LOT TECHNICIAN 12/26/2024 8:39 PM LOT TECHNICIAN us Aliyah Sheth MD LAB MICROBIOLOGY - GENERAL ORDERABLES Final Result [facility] [address] Department [place] [address] * Screening Mammogram Bilateral W Artemio (08/02/2024 9:23 AM CDT) Anatomical Region Laterality Modality Breast Bilateral Mammography Narrative 08/04/2024 3:10 PM CDT Mammogram Technique: Bilateral Digital Breast Tomosynthesis, Bilateral C-view 2D Screening mammogram. Views obtained: bilateral craniocaudal and bilateral mediolateral oblique. Computer Aided Detection was performed. Mammogram Findings: The present examination has been compared to prior imaging studies performed at [facility] on 07/13/2021, 07/19/2022 and 08/01/2023. There are [...] compared to prior imaging studies performed at [facility] on 07/13/2021, 07/19/2022 and 08/01/2023. There are scattered areas of fibroglandular density. There are post breast conservation therapy changes in the right breast. There is no suspicious abnormality in either breast. Impression: There is no mammographic evidence of malignancy. Annual screening mammography is recommended. OVERALL FINAL ASSESSMENT: BI-RADS CATEGORY 2: Benign. Jen Padgett MD IM MAMMO PROCEDURES Fi nal Result from Last 3 Months or Most Recently Relevant to Health Maintenance Insurance [employer] ACCESS [employer] [place] [id number] [employer] CIG OPEN ACCESS [email or web address] OPEN ACCESS Care Teams Middle School Math Teacher Relationship Specialty Start Date End Date Annel Alicea PA [address] [place] [id number] PCP - General Family Practice 07/19/23 Jennifer Fisher MD [address] [facility] [address] [place] [address] Radiation Oncologist Radiation Oncology 06/05/20 Jen Padgett MD [address] [facility] [address] [place] [address] Surgeon Surgical Oncology 06/05/20
--- OUTSIDE RECORDS SUMMARY | 2025-04-02 18:19 | XMS_ITS | Clinical Summary ---
Author Organization [facility] Address [employer] [facility] [place] [address] Care Team Providers Care Batch Plant Operator Name Role Phone Annel Alicea Primary Care Provider [phone] Ramone Mac MD Unavailable [phone] Source Comments [facility],non-owned Affiliates and Associated Physician Practices is amultiple site organization consisting of ambulatory clinics and hospital sitesin [place], [place], [place] and [place]. This disclosure is being madepursuant to the Care Everywhere program and may not contain all information available regarding this patient. Last updated 18.[facility] Allergies No known active allergies Medications * Be aware that medications may not be up to date on this document. Alwaysverify current medications with the patient. anastrozole (Arimidex) 1 MG tablet Take 1 (one) tablet by mouth once daily 3 Active ergocalciferol (Drisdol) 1.25 MG (74258 UT) capsule Take 1 (one) capsule by mouth once daily Active fluticasone propionate (Flonase) 50 MCG/ACT nasal spray as needed Active loratadine (Claritin) 10 MG tablet Take 1 (one) tablet by mouth as needed Active triamcinolone acetonide (Kenalog) 0.025 % ointment Apply to affected area as needed Active AMLODIPINE-OLM ESARTAN PO Take 1 mg by mouth once daily Active METFORMIN HCL PO Take 500 mg by mouth once daily Active Cholecalcifero l (D3-1000) 25 MCG (1000 UT) Active Cetirizine HCl (ALLERGY, CETIRIZINE, PO) Take 10 mg by mouth as needed Active azelastine-flu ticasone (Dymista) 137-50 MCG/ACT nasal spray [place] into each nostril once daily Active Ozempic, 0.25 or 0.5 MG/DOSE, 2 MG/3ML SOPN INJECT 0.5MG SUBCUTANEOUSLY ONCE PER WEEK FOR 4 WEEKS 3 Active celecoxib (CeleBREX) 200 MG capsule Take 1 (one) capsule by mouth 2 times daily 180 capsule 3 4 Active Azelastine HCl 137 MCG/SPRAY SOLN 4 Active benzonatate (Tessalon) 100 MG capsule 4 Active olmesartan (Benicar) 20 MG tablet 4 Active clobetasol (Temovate) 0.05 % ointment Apply 0.05 Applications to affected area 2 times daily 5 Active famotidine (Pepcid) 20 MG tablet Take 1 (one) tablet by mouth 2 times daily Active hydroxychloroq uine (Plaquenil) 200 MG tablet Take 1 (one) tablet by mouth 2 times daily 5 Active predniSONE (Deltasone) 10 MG tablet 1 (one) tablet Activ e Xifaxan 550 MG tablet TAKE 1 TABLET BY MOUTH THREE TIMES DAILY FOR 14 DAYS 5 Active Active Problems Problem Noted Date Diagnosed Date Primary osteoarthritis of both knees 08/03/2023 Vitamin D deficiency 12/21/2022 04/20/2023 Osteopenia of lumbar spine 12/21/202204/20 Encounters Date Type Department Care Team Description 02/18/2025 11:30 AM CDT Office Visit [facility] Health Orthopedics [address] [facility], [address] [address] Ramone Mac MD Primary osteoarthritis of both knees (Primary Dx) 02/18/2025 Travel from Last 3 Months Social History Tobacco Use Types Packs/Day Years Used Date Smoking Tobacco: Never Smokeless Tobacco: Never Tobacco Cessation:Counseling Given: Not Answered Alcohol Use Standard Drinks/Week Comments Not Currently 0 (1 standard drink = 0.6 oz pur e alcohol) PHQ-2 Answer Date Recorded Patient Health Questionnaire-2 Score 0 02/18/2025 Comments Unknown Sex and Gender Information Value Date Recorded Sex Assigned at Not on file Legal Sex Female 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 Gender Identity Not on file Sexual Orientation Not on file Last Filed Vital Signs Vital Sign Reading Time Taken Comments Blood Pressure - - Pulse - - Temperature - - Respiratory Rate - - Oxygen Saturation - - Inhaled Oxygen Concentration - - Weight 105.7 kg (233 lb) 04/18/2023 10:45 AM CDT Height 170.2 cm (5' 7) 04/18/2023 10:45 AM CDT Body Mass Index 36.49 04/18/2023 10:45 AM CDT Plan of Treatment Upcoming Encounters Date Type Department Care Team (Late st Contact Info) Description 05/20/2025 10:30 AM CDT Office Visit [facility] Orthopedics [address] [address] [place] [address] [facility] [address] [place] [address] Health Maintenance Due Date Last Done Comments COLOGUARD (AGES 45-75) - COLON CA SCREENING 1968 COLON MONITORING 1968 COLONOSCOPY - COLON CA SCREENING 1968 CT COLONOGRAPHY - COLON CA SCREENING 1968 Colorectal Cancer Screening 1968 FIT - COLON CA SCREENING 1968 FLEX SIG - COLON CA SCREENING 1968 LIPID TESTING 1968 PAP SMEAR 1968 HIV SCREENING 1983 DTAP/TDAP/TD VACCINES (1 - Tdap) 1987 HEPATITIS B VACCINE (1 of 3 - 19+ 3-dose series) 1987 PNEUMOCOCCAL VACCINE 50+ (1 of 1 - PCV) 2018 ZOSTER VACCINE (1 of 2) 2018 COVID-19 VACCINE ( - season) 2024 09/07/2021, 01/20/2021, 12/23/2020 MAMMOGRAM 08/02/2026 08/02/2024, 07/23, 08/01/2023, Additional history exists INFLUENZA VACCINE Completed 07/25/2024, , 09/01/2022, Additional history exists HEPATITIS C SCREENING Completed 12/26/2024 DEPRESSION SCREENING Completed 02/18/2025 HIB VACCINE Aged Out No longer eligi ble based on patient's age to complete this topic HPV VACCINE Aged Out No longer eligi ble based on patient's age to complete this topic MENINGOCOCCAL (Group B) VACCINE SHARED DECISION-MAKING Aged Out No longer eligible based on patient's age to complete this topic MENINGOCOCCAL GROUPS A/C/Y/W VACCINE Aged Out No longer eligible based on patient's age to complete this topic Insurance CIG[employer] Care Teams Batch Plant Operator Relationship Specialty Start Date End Date Annel Alicea PA [facility] [place] [address] PCP - General Physician Mass Spectrometry Manager 04/18/23 [place] [address] [place] [address] Surgeon Orthopedic Surgery 04/18/23
--- OUTSIDE RECORDS SUMMARY | 2025-04-02 18:19 | XMS_ITS | Encounter Summary ---
Author Organization [facility] Address [address] [place] [address] Care Team Providers Care Manganese Heater Name Role Phone Annel Alicea Primary Care Provider + [phone] Ramone Mac MD Unavailable [phone] Encounter Details Date Type Department Care Team (Late Contact Info) Description 10/01/2024 Lab Requisition [facility] - DermPath Lab [address] [facility], [place] [id number] Leigh Salter MD [address] [facility] [address] [place] [address] Social History Tobacco Use Types Packs/Day Years Used Date Smoking Tobacco: Never Smokeless Tobacco: Never Alcohol Use Standard Drinks/Week Comments Not Currently 0 (1 standard drink = 0.6 oz pur e alcohol) Comments Unknown Sex and Gender Information Value Date Recorded Sex Assigned at Not on file Legal Sex Female 5:28 PM HIGH LIGHTER Gender Identity Not on file Sexual Orientation Not on file documented as of this encounter Plan of Treatment Upcoming Encounters Date Type Department Care Team (Late Contact Info) Description 05/20/2025 10:30 AM CDT Office Visit [facility] Orthopedics [address] [place] [phone] [place] [id number] [address] documented as of this encounter Procedures Procedure Name Priority Date/Time Associated Diagnosis Comments DERMATOPATHOLOGY Routine 10/01/2024 2:38 PM HIGH LIGHTER documented in this encounter Results * DERMATOPATHOLOGY (10/01/2024 2:38 PM HIGH LIGHTER) Case Report Dermatopathology Report Case: [id number] Authorizing Provider: Leigh Salter MD Collected: 10/01/2024 02:38 PM Ordering Location: [facility] - Received: 10/02/2024 03:48 PM DermPath Lab Pathologist: Reba El MD Specimen: Skin, left upper arm 10:11 AM [facility] DERMATOPATHOLOGY LABORATORY Final Diagnosis Specimen A. 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 The specimen consists of a punch biopsy measuring 4x4x5 mm. Jar 0. 10:11 AM [facility] DERMATOPATHOLOGY LABORATORY Microscopic Description Specimen A. SKIN, left upper arm: There are scattered dyskeratotic keratinocytes and vacuolar alteration along the basal cell layer. There is focal involvement of follicular epithelium as well. A mild, perivascular lymphocytic infiltrate is observed in the superficial dermis and there is abundant melanin within melanophages around the superficial vascular plexus. The hematoxylin and eosin stain is reviewed; immunohistochemical stains are performed to further characterize this process. CD123 highlights a focal increase in plasmacytoid dendritic cells. A colloidal iron tissue stain highlights increased dermal mucin. Additional deeper sections were obtained and reviewed. COMMENT: These findings could be suggestive of connective tissue disease in the provided clinical context. Objectively, a drug reaction, lichen planus pigmentosus, or erythema dyschromicum perstans cannot be excluded but are less favored. Clinicopathologic correlation is recommended. 10:11 AM [facility] DERMATOPATHOLOGY LABORATORY Disclaimer An external and internal positive and negative controls are appropriate for the histochemical, immunohistochemical and immunofluorescence stain(s) in this case (if any), except where stated explicitly. The performance characteristics of the stain(s) cited in this report were developed and its performance characteristic determined by the Dermatopathology Laboratory at [facility], directed by Dr. Nnamdi Bowles. These tests need not be, and therefore are not, approved by the [place] Food and Drug Administration. The tests are used for clinical purposes. Billing Codes Specimen Charges Stain Charges 44189 1 14442 15095 1 1 4 10:11 AM [facility] DERMATOP[facility]Y LABORATORY Embedded Images 4 10:11 AM [facility]ERMAT[facility] Pathology/Cytolo gy TISSUE SPECIMEN FROM SKIN / Unknown 10/01/2024 2:38 PM H[facility] LIGHTER 10/02/2024 3:48 PM HIGH LIGHTER Leigh Saltre MD LAB - PATHOLOGY/CYTOLOGY OR DERABLES Final Result DERMATOPATHOLOGY LABORATORY [facility] - Department of Dermatology [facility] Medicine [address] [place] [address], [address] [phone] documented in this encounter Visit Diagnoses Not on filedocumented in this encounter Care Teams Manganese Heater Relationship Specialty Start Date End Date Annel Alicea PA [address] [place] [phone] PCP - General Physician [employer] Consultant 04/18/23 [place] [id number] [address] Surgeon Orthopedic Surgery 04/18/23 documented as of this encounter
== END 2025-04-02 17:21 | disposition home or self-care (01) ==
PROVIDERS: PCP Physician Assistant Medical; Visit Provider Urology
DX: K80.20 Calculus of gallbladder without cholecystitis without obstruction (principal); N20.0 Calculus of kidney
CPT/HCPCS: 74018

== ENCOUNTER 2025-07-03 08:09 | Outpatient (CLI) | payer OTHER, SELFPAY ==
--- NOTE | ~2025-07-03 | CT_ITS ---
EXAMINATION: CT abdomen pelvis wo diana, 07/03/2025 8:15 CDT HISTORY: bilateral kidney stones COMPARISON: No comparisons available. TECHNIQUE: CT scan of the abdomen and pelvis was performed without IV contrast. One or more of the following dose reduction techniques were used: automated exposure control, adjustment of the mA and/or kV according to patient size, use of iterative reconstruction technique. Unless otherwise stated, incidental findings do not require dedicated follow up imaging FINDINGS: CT abdomen: LUNG BASES: lung bases demonstrate punctate calcified granulomas. LIVER: Severe hepatic steatosis. SPLEEN: Punctate calcified splenic granulomas.. KIDNEYS: Right Kidney: Right kidney there are renal calculi the largest in the midpole 4 mm with a calculus in the renal pelvis measuring 4 x 6 mm, there is moderate right hydronephrosis and hydroureter with an obstructing proximal ureteral calculus measuring 2 x 2 mm. Left Kidney: Left kidney there are renal calculi noted the largest lower pole 2 mm, no hydronephrosis. ADRENAL GLANDS: Unremarkable. PANCREAS: Moderate pancreatic atrophy. GALLBLADDER/BILIARY: Cholelithiasis. STOMACH AND ESOPHAGUS: Visualized stomach and esophagus within normal limits. BOWEL/MESENTERY: Moderate fecal content, no colitis or diverticulitis. Appendix normal. Mesentery normal. Small bowel normal. ADENOPATHY/RETROPERITONEUM: No lymphadenopathy. AORTA/VASCULATURE: Normal caliber aorta. FREE FLUID OR FREE AIR: No free fluid.. CT pelvis: SOLID ORGANS/REPRODUCTIVE: Post hysterectomy. No adnexal mass. BLADDER: Within normal limits. OSSEOUS STRUCTURES: No acute osseous abnormality.No suspicious lesions. OVERLYING SOFT TISSUES: Mild probable soft tissue anasarca. IMPRESSION: 1. Right-sided obstructive uropathy Reviewed, dictated and finalized at location A.
== END 2025-07-03 08:10 | disposition home or self-care (01) ==
LOC: MICIMG 08:10
PROVIDERS: PCP Physician Assistant Medical; Visit Provider Urology
DX: N20.0 Calculus of kidney (principal)
CPT/HCPCS: 74176

== ENCOUNTER 2025-07-07 07:44 | Outpatient (CLI) | payer OTHER, SELFPAY ==
--- OUTSIDE RECORDS SUMMARY | 2025-07-07 08:18 | XMS_ITS ---
Author Organization [facility] Address [address] [place] [address] Care Team Providers Care Benefit Specialist Name Role Phone Jennifer Fisher MD Unavailable Jen Padgett MD Unavailable [phone] Annel lAicea Primary Care Provider [phone] Active Problems Problem Noted Date Diagnosed Date [...] from 05/25/2020:Stage IA(pT1mi, pN0(sn), cM0, G1, ER+, MS+, HER2-) - Signed by Jennifer Fisher MD [...]
--- OUTSIDE RECORDS SUMMARY | 2025-07-07 08:18 | XMS_ITS | Clinical Summary ---
Author Organization [facility] Address [facility] [place] [address] Care Team Providers Care Community Pharmacist Name Role Phone Annel Alicea Primary Care Provider [phone] Ramone Mac MD Unavailable [phone] Source Comments [facility],non-owned Affiliates and Associated Physician Practices is amultiple site organization consisting of ambulatory clinics and hospital sitesin [place], [place], [place] and [place]. This disclosure is being madepursuant to the Care Everywhere program and may not contain all information available regarding this patient. Last updated 18.[facility] Allergies No known active allergies Medications * Be aware that medications may not be up to date on this document. Alwaysverify current medications with the patient. 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 Gender Identity Not on file Sexual Orientation [...] 04/18/2023 10:45 AM CDT Plan of Treatment Health Maintenance Due Date Last Done Comments COLOGUARD (AGES 45-75) - COLON CA SCREENING 1968 COLON MONITORING 1968 COLONOSCOPY - COLON CA SCREENING 1968 CT COLONOGRAPHY - COLON CA SCREENING 1968 Colorectal Cancer Screening 1968 FIT - COLON CA SCREENING 1968 FLEX SIG - COLON CA SCREENING 1968 LIPID TESTING 1968 HIV SCREENING 1983 DTAP/TDAP/TD VACCINES (1 - Tdap) 1987 HEPATITIS B VACCINE (1 of 3 - 19+ 3-dose series) 1987 PAP SMEAR 1989 PNEUMOCOCCAL VACCINE 50+ (1 of 1 - PCV) 2018 ZOSTER VACCINE (1 of 2) 2018 COVID-19 VACCINE (4 - season) 2025 09/07/2021, 01/20/2021, 12/23/2020 INFLUENZA VACCINE (#1) 2025 , 07/28/2023, 09/01/2022, Additional history exists MAMMOGRAM 08/02/2026 08/02/2024, 07/23, 08/01/2023, Additional history exists HEPATITIS C SCREENING Completed [...] complete this topic Insurance [employer] Care Teams Community Pharmacist Relationship Specialty Start Date End Date Annel Alicea PA [facility] [place] [address] PCP - General Physician Psychiatry Adult Physician 04/18/23 [place] [id number] [address] Surgeon Orthopedic Surgery 04/18/23
--- OUTSIDE RECORDS SUMMARY | 2025-07-07 08:18 | XMS_ITS | Clinical Summary ---
Author Organization [facility] Address [address] [place] [address] Care Team Providers [facility] Ambulance Paramedic Name Role Phone Jennifer Fisher MD Unavailable Jen Padgett MD Unavailable [phone] Annel Alicea Primary Care Provider [phone] Allergies No known active allergies Medications metroNIDAZOLE (METROGEL) 0.75 % gel as needed 06/16/20 20 Active cholecalciferol 25 mcg (1,000 unit) tablet Take by mouth Act shital famotidine (PEPCID) 20 mg tablet Take 1 tablet (20 mg total) by mouth 2 (two) times a day 12/11/19 25 Active hydroxychloroquin e (PLAQUENIL) 200 mg tablet Take 1 tablet (200 mg total) by mouth 2 (two) times a day 10/29/19 25 Active gentamicin (GARAMYCIN) 0.1 % ointment Apply topically 3 (three) times a day 15 g 1 12/27/19 25 Active cyanocobalamin (Vitamin B-12) 1,000 mcg tabletIndications :Prevention of Vitamin B12 Deficiency Take 1 tablet (1,000 mcg total) by mouth daily Active omeprazole (PriLOSEC) 20 mg capsule Take 1 capsule (20 mg total) by mouth daily Active diphenoxylate-atr opine (LOMOTIL) 2.5-0.025 mg per tablet Take 1 tablet by mouth 4 (four) times a day as needed 2 04/22/20 25 Active qvjmoyxk-goe-qtnj c-vit K-lycop 400-20-300 mcg tablet Take by mouth Active rifAXIMin (XIFAXAN) 550 mg tablet Take 1 tablet (550 mg total) by mouth 3 times a day Active pancrelipase (CREON) 36,000 units of lipase capsuleIndication s:exocrine pancreatic insufficiency 1 capsule 3 (three) times a day Active cholestyramine (QUESTRAN) 4 gram powder Take by mouth 3 (three) times a day with meals Active fluticasone propionate (FLONASE) 50 mcg/actuation nasal spray as needed 025 Discontin ued(Stop Taking at Discharge ) azelastine (ASTELIN) 137 mcg (0.1 %) nasal spray 05/18/20 20 025 Discontin ued(Stop Taking at Discharge ) ergocalciferol, vitamin D2, (VITAMIN D2 ORAL) Take by mouth 05/24 025 Discontin ued(Thera py completed ) olmesartan (BENICAR) 20 mg tablet 07/24/20 20 025 Discontin ued(Thera py completed ) metFORMIN (GLUCOPHAGE) 500 mg tablet 04/13/20 23 025 Discontin ued(Thera py completed ) clobetasoL (TEMOVATE) 0.05 % ointment Apply 0.05 Applications topically 2 (two) times a day 11/25/19 25 025 Discontin ued(Thera py completed ) anastrozole (ARIMIDEX) 1 mg tabletIndications :Malignant neoplasm of right female breast, unspecified estrogen receptor status, unspecified site of breast (HCC) TAKE 1 TABLET DAILY 90 tablet 1 12/31/19 25 025 Discontin ued(Thera py completed ) Active Problems Problem Noted Date Diagnosed Date Kidney stone 08/02/2024 Primary osteoarthritis of both knees 08/03/2023 Osteopenia of lumbar spine 12/21/2022 Vitamin D deficiency 12/21/2022 Family history of breast cancer 12/21/2022 Encounter for screening mammogram for breast can cer 12/21/2022 Breast cancer screening, high risk patient 12/21 Encounter for monitoring aromatase inhibitor the jazz 04/12/2021 Encounter for follow-up surveillance of breast c ancer 07/14/2020 Malignant neoplasm of 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, estrogen receptor positive 05/08/2020 Cancer Staging:Pathologic stage from 05/25/2020:Stage IA(pT1mi, pN0(sn), cM0, G1, ER+, MA+, HER2-) - Signed by Jennifer Fisher MD on 06/05/2020 Basal cell carcinoma (BCC) of face 04/06/2016 Resolved Problems Problem Noted Date Diagnosed Date Resolved Date Encounter to discuss treatment options 07/14/2020 12/25/2024 Encounters Date Type Department Care Team Description 5 7:30 AM CDT - 5 8:00 AM CDT Surgery [facility] [address] [place] [phone] Ronn Sanders MD ESOPHAGOGASTRODUODENOSCOPY ULTRASOUND GUIDE LIMITED 5 7:29 AM CDT Anesthesia Event [facility] [address] [place] [phone] Yon Tariq MD 5 6:15 AM CDT - 5 9:14 AM CDT Hospital Encounter [facility] [address] [place] [phone] Antolin Nobles MD Banerjee, Nikhil, MD Abnormal findings on diagnostic imaging of digestive system; Pancreatic atrophy Discharge Disposition: Discharge to home or self care 5 10:05 AM CDT - 5 11:59 PM CDT Hospital Encounter [address] [phone] Discharge Disposition: Discharge to home or self care 5 8:45 AM CDT Office Visit [facility] Rhe[facility]ology at [facility] [address] [place] [phone] Aliyah Sheth MD 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, adult onset (HCC) (Primary Dx); Encounter for medication monitoring; Loose stools 5 Results Follow-Up [facility] Rhe[facility] at [facility] [address] [place] [address] Aliyah Sheth MD Creatine kinase (CK), total, CBC with auto differential, Differential, auto from Last 3 Months Immunizations Immunization Administration Dates Next Due COVID-19 mRNA (PFIZER) 0.3 m L (30 mcg) vaccine (12 [...] Date Comments Hypertension Skin cancer Dermatomyositis (HCC) Type 2 diabetes mellitus Kidney stone Family History Medical History Relation Name Comments Brain cancer Brother Lung cancer Father Breast cancer Sister Relation Name Status Comments Brother Father Mother Sister Social History Tobacco Use Types Packs/Day Years Used Date Smoking Tobacco: Never Smokeless Tobacco: Never Alcohol Use Standard Drinks/Week Comments Yes 0 (1 standard drink = 0.6 oz pur e alcohol) rare AUDIT-C Answer Date Recorded Q1: How often do you have a drink containing alc ohol? Monthly or less 06/30/2025 Q2: How many drinks containi ng alcohol do you have on a typical day when you are drinking? 1 or 2 06/30/2025 Q3: How often do you have si x or more drinks on one occasion? Never 06/30/2025 Personal Safety Answer Date Recorded Have you ever been in or are you currently in a harmful physical or emotional relationship or is someone making you feel afraid or unsafe? Denies 07/01/2025 Comments No Sex and Gender Information Value Date Recorded Sex Assigned at Not on file Legal Sex Female 11:27 AM QA ARCHITECT Gender Identity Not on file Sexual Orientation Not on file Obstetrics History Last Filed Vital Signs Vital Sign Reading Time Taken Comments Blood Pressure 125/75 07/01/2025 8:50 AM CDT Pulse 66 07/01/2025 8:50 AM CDT Temperature 36.4 C (97.5 F) 07/01/2025 6:48 AM CDT Respiratory Rate 15 07/01/2025 8:50 AM CDT Oxygen Saturation 100% 07/01/2025 8:50 AM CDT Inhaled Oxygen Concentration - - Weight 70.3 kg (155 lb) 07/01/2025 6:48 AM CDT Height 167.6 cm (5' 6) 07/01/2025 6:48 AM CDT Body Mass Index 25.02 07/01/2025 6:48 AM CDT Plan of Treatment Health Maintenance Due Date Last Done Comments Colon Cancer Screening-Colonoscopy 1970 Depression Screening 1970 Hepatitis B Screening 1986 Regular Well Visit/Exam 18-64 1986 Pneumococcal vaccine <65 (1 of 2 - PCV) 1987 Covid-19 Vaccine (2024-2 6 season) 2025 07/28/2023, 09/01/2022, 04/01/2022, Additional history exists Influenza Vaccine (#1) 2025 , 07/28/2023, 09/01/2022, Additional history exists Breast Cancer Screening-Mammogram 08/02/2025 08/02/2024, 08/01/2023, 07/19/2022, Additional history exists DTaP/Tdap/Td Vaccine (3 - Td or Tdap) 09/04/2033 09/04/2023, 03/14/2013 Zoster Vaccine Completed 03/04/2020, 12/27/2019 Hepatitis C Screening Completed 12/26/2024 Procedures Procedure Name Priority Date/Time Associated Diagnosis Comments US ENDOSCOPIC IP Routine 07/01/2025 8:00 AM CDT Abnormal findings on diagnostic imaging of digestive system Pancreatic atrophy SURGICAL PATHOLOGY Routine 07/01/2025 7:52 AM CDT Abnormal findings on diagnostic imaging of digestive system Pancreatic atrophy ESOPHAGOGASTRODUODENOSCOPY ULTRASOUND GUIDE LIMITED 07/01/2025 7:29 AM CDT Abnormal findings on diagnostic imaging of digestive system Pancreatic atrophy UPPER EUS 07/01/2025 7:18 AM CDT POCT GLUCOSE DEVICE Routine 07/01/2025 6:54 AM CDT DIFFERENTIAL AUTO Routine 04/15/2025 9:17 AM CDT 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, adult onset (HCC) Encounter for medication monitoring Loose stools CBC WITH AUTO DIFFERENTIAL Routine 04/15 9:17 AM CDT 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, adult onset (HCC) Encounter for medication monitoring Loose stools CREATINE KINASE (CK), TOTAL Routine 03/24 9:17 AM CDT 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, adult onset (HCC) Encounter for medication monitoring Loose stools ALDOLASE Routine 04/15/2025 9:17 AM CDT 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, adult onset (HCC) Encounter for medication monitoring Loose stools HEPATITIS C ANTIBODY Routine 12/26/2024 8:39 PM QA ARCHITECT 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, adult onset (HCC) Loose stools Encounter for medication monitoring Skin lesion SCREENING MAMMOGRAM BILATERA L W ARTEMIO Schedule Routine, Read Routine (OP Routine) 08/02/2024 9:23 AM CDT History of right breast cancer from Last 3 Months or Most Recently Relevant to Health Maintenance Results * Surgical pathology (07/01/2025 7:52 AM CDT) Tissue (Lymph node, needle biopsy) 07/01/2025 7:52 AM CDT Narrative PATHOLOGY [facility] - 07/02/2025 1:32 PM CDT [address] [address] Tele: Katelynn Olmos MD - Tariff Compiling Clerk Note to Patients: This report may contain a detailed description of human tissue sent by a health care provider to the laboratory for pathologic evaluation. The content of this report is essential for diagnosis and may provide important critical findings. This information may be unfamiliar to patients to review without a medical professional present. It is advised that the patient review this report in the presence of a health care provider who can answer questions and explain the details. SURGICAL PATHOLOGY REPORT Patient Name: IVANIA YU Address: [address] [place] [address] Gender: F : 1970 (Age: 55) Service: Gastro Location: [facility], Hospital #: [id number] Patient Type: [facility] SAME DAY SURGERY Taken: 07/01/2025 Received 07/01/2025 Reported: 07/02/2025 Physician(s): MD Sarah Ma MD DIAGNOSIS: Lymph node, periportal, fine-needle biopsy: - No evidence of malignancy [facility]/07/02/2025 13:32 Examining Pathologist: Herminio Dasilva MD, PhD Report Reviewed and Electronically Signed By Herminio Dasilva MD, PhD SPECIMEN TYPE: A: FNB PERIPORTAL LYMPH NODE CLINICAL IMPRESSION AND HISTORY: Abnormal findings on diagnostic imaging of digestive tract GROSS DESCRIPTION: Received in formalin labeled IVANIA YU and FNB periportal lymph node are multiple red-brown tissue fragments, 2 x 0.5 x 0.3 cm in aggregate. The specimen is filtered and entirely submitted in A1. jxi/07/01/2025 13:07 JAP,JXI MICROSCOPIC DESCRIPTION: Sections of the periportal lymph node fine needle biopsy demonstrate fragments of reactive appearing lymph node parenchyma. A pancytokeratin stain is performed and is negative for metastatic carcinoma. Clerical Data Follows A; [id number], [id number] REPORT IMAGES AND/OR SCANNED DOCUMENTS ONLY VIEWABLE IN PDF FORMAT The immunohistochemical test(s) cited in this report, if any, was developed and its performance characteristics determined by [facility]. It has not been cleared or approved by the U.S. Food and Drug Administration. The FDA has determined that such clearance or approval is not necessary. This test is used for clinical purposes. It should not be regarded as investigational or for research. [facility] is certified under the Clinical Laboratory Improvement Amendments of 1988 (CLIA) as qualified to perform high complexity testing. Immunostains were performed on formalin-fixed paraffin embedded tissue using a polymer diaminobenzidine chromogen detection system. Antibodies used may include clone SP1 (rabbit monoclonal, estrogen receptor), clone 1E2 (rabbit monoclonal progesterone receptor), Ki-67 (rabbit monoclonal, 30-9), CD117 (rabbit polyclonal, c-kit), and anti-Her-2/mariajose (4B5) (rabbit monoclonal primary antibody). In the event that immunohistochemistry or special stains have been performed, attending physician has confirmed appropriateness of controls. Frozen section, operating room consultation, gross examination and dissection, and case sign out may have been performed in part or completely in the following laboratories: [facility], [address] [place] [address], [address] [place] [address]. Ronn Sanders MD LAB PATHOLOGY ORDERABLES Darlene gunter Result PATHOLOGY [facility] Laboratory Receiving [address] [place] [address] * Upper EUS (07/01/2025 7:18 AM CDT) Anatomical Region Laterality Modality Other Narrative Procedure Note Ronn Sanders MD - 07/01/2025 7:18 AM CDT ENDOSCOPY LAB Patient Name: Ivania Yu Procedure Date: 07/01/2025 7:18 AM Admit Type: Outpatient Room: [facility] Date of : 1970 Instrument Name:[id number] Gender: Female Note Status: Finalized Procedure: Upper EUS Indications: Abnormal abdominal/pelvic CT scan Providers: Ronn Sanders M.D. Referring MD: Annel Alicea PA-C Medicines: Monitored Anesthesia Care Complications: No immediate complications. Estimated Blood Loss: Estimated blood loss was minimal. Procedure: Pre-Anesthesia Assessment: - Prior to the procedure, a History and Physicalwas performed, and patient medications and allergieswere reviewed. The patient is competent. The risks and benefits of the procedure and the sedation optionsand risks were discussed with the patient. Allquestions were answered and informed consent was obtained. Patient identification and proposed procedure were verified by the physician, the nurse and the anesthesiologist in the pre-procedure area. Mental Status Examination: alert and oriented. Airway Examination: normal oropharyngeal airway and neck mobility. Respiratory Examination: clear to auscultation. CV Examination: normal. ASA Grade Assessment: II - A patient with mild systemicdisease. After reviewing the risks and benefits, the patient was deemed in satisfactory condition to undergo the procedure. The anesthesia plan was to use monitored anesthesia care (MAC). Immediately prior to administration of medications, the patient was re-assessed for adequacy to receive sedatives. The heart rate, respiratory rate, oxygen saturations, blood pressure, adequacy of pulmonary ventilation,and response to care were monitored throughout the procedure. The physical status of the patient was re-assessed after the procedure. The risks, benefits and alternatives were discussed and informed consent was obtained.The Endosonoscope was introduced through the mouth, and advanced tothe second part of duodenum The Endoscope wasintroduced through the mouth, and advanced to the second partof duodenum The upper EUS was accomplished without difficulty. The patient tolerated the procedurewell. Findings: ENDOSCOPIC FINDING: : The examined esophagus was endoscopically normal. The entire examined stomach was endoscopically normal. The examined duodenum was endoscopically normal. ENDOSONOGRAPHIC FINDING: : One enlarged lymph node was visualized in the stacy hepatis region.It measured 27 mm by 20 mm in maximal cross-sectional diameter. The node was triangular, isoechoic and had well defined margins. Fine needle biopsy was performed. Color Doppler imaging was utilized prior toneedle puncture to confirm a lack of significant vascular structures withinthe needle path. Two passes were made with the 22 gauge ultrasound core biopsy needle using a transduodenal approach. A visible core oftissue was obtained. Final cytology results are pending. There was no sign of significant endosonographic abnormality in the ampulla. There was no sign of significant endosonographic abnormality in the entire pancreas. The pancreas was well visualized, no masses, nocysts, no calcifications, the pancreatic duct was well visualized fromampulla to tail, the pancreatic duct was regular in contour. There was no sign of significant endosonographic abnormality in the common bile duct. The maximum diameter of the duct was 6 mm. An unremarkable gallbladder was identified. Impression: - Normal esophagus. - Normal stomach. - Normal examined duodenum. - One enlarged lymph node was visualized in theporta hepatis region. Fine needle biopsy performed. - There was no sign of significant pathology in the ampulla. - There was no sign of significant pathology in the entire pancreas. - There was no sign of significant pathology in the common bile duct. Recommendation: - Discharge patient to home. - Await path results. - Continue present medications. Attending Participation: I personally performed the entire procedure. Electronically signed by Ronn Sanders M.D. Ronn Sanders M.D. 07/01/2025 8:03:28 AM Number of Addenda: 0 Note Initiated On: 07/01/2025 7:18 AM Scope In: Scope Out: Ronn Sanders MD ENDOSCOPY PROCEDURES Final Re sult * POCT glucose (07/01/2025 6:54 AM CDT) [facility] Glucose, POC 93 70 - 199 mg/dL Comment: For Glucose values <35 mg/dl when Hematocrit is >60 mg/dl,the test may not accurately detect significant hypoglycemia,and testing in the Laboratory should be considered if clinically indicated. Blood 07/01/2025 6:54 AM CDT 07/01/2025 6:54 AM CDT Antolin Nobles MD LAB POCT ORDERABLES - DEVICE Final Result [facility] [address] Department [place] [address] * (ABNORMAL) Differential, auto (04/15/2025 9:17 AM CDT) [facility] Neutrophil abs 5.74 1.50 - 6.50 K/cumm Imm gran abs 0.04 0.00 - 0.10 K/cumm [facility] Lymphocyte abs 1.50 0.80 - 3.30 K/cumm [facility] Monocyte abs 0.84(H) 0.20 - 0.80 K/cumm [facility] Eosinophil abs 0.06 0.00 - 0.50 K/cumm [facility] Basophil abs 0.05 0.00 - 0.10 K/cumm [facility] Neutrophil pct 69.8 % [facility] Comment: Interpretive Data Percent cell count reference ranges are not reported, since discordance with absolute values may lead to misinterpretation of CBC data. Current Interpretive Data was last revised on 2018. Imm gran pct 0.5 % [facility] Comment: Interpretive Data Percent cell count reference ranges are not reported, since discordance with absolute values may lead to misinterpretation of CBC data. Current Interpretive Data was last revised on 2018. Lymphocyte pct 18.2 % [facility] Comment: Interpretive Data Percent cell count reference ranges are not reported, since discordance with absolute values may lead to misinterpretation of CBC data. Current Interpretive Data was last revised on 2018. Monocyte pct 10.2 % [facility] Comment: Interpretive Data Percent cell count reference ranges are not reported, since discordance with absolute values may lead to misinterpretation of CBC data. Current Interpretive Data was last revised on 2018. Eosinophil pct 0.7 % [facility] Comment: Interpretive Data Percent cell count reference ranges are not reported, since discordance with absolute values may lead to misinterpretation of CBC data. Current Interpretive Data was last revised on 2018. Basophil pct 0.6 % [facility] Comment: Interpretive Data Percent cell count reference ranges are not reported, since discordance with absolute values may lead to misinterpretation of CBC data. Current Interpretive Data was last revised on 2018. Blood 04/15/2025 9:17 AM CDT 04/15/2025 10:44 AM CDT us Aliyah Sheth MD LAB BLOOD ORDERABL ES Final Result [facility] [address] [place] [address] * (ABNORMAL) CBC with auto differential (04/15/2025 9:17 AM CDT) WBC 8.23 3.80 - 9.90 K/cumm Hgb 12.4 11.9 - 15.5 g/dL [facility] Hct 38.1 35.6 - 45.5 % [facility] Plt 238 150 - 400 K/cumm [facility] MPV 12.8(H) 9.1 - 12.3 fL [facility] RBC 3.65(L) 3.90 - 5.20 M/cumm [facility] MCV 104.4(H) 81.3 - 96.4 fL [facility] MCH 34.0(H) 27.1 - 33.3 pg [facility] MCHC 32.5 32.3 - 35.7 g/dL [facility] RDW CV 12.3 11.1 - 14.9 % [facility] RDW SD 47.7 35.7 - 48.1 fL [facility] NRBC abs 0.00 0.00 - 0.01 K/cumm [facility] Blood 04/15/2025 9:17 AM CDT 04/15/2025 10:44 AM CDT Aliyah Sheth MD LAB BLOOD ORDERABL ES Final Result Performing Organization Address [facility]/ZIP Co de Phone Number [facility] [address] Department [place] [employer] [place] [address] * Aldolase (04/15/2025 9:17 AM CDT) Aldolase 4.6 0.1 - 8.0 Units/L Comment:Testing performed by : [facility], [address], [place]., [address] Blood 04/15/2025 9:17 AM CDT 04/15/2025 8:48 PM CDT us Aliyah Sheth MD LAB BLOOD ORDERABL ES Final Result [facility] [address] Department of [employer] [place], [place] [id number] * Creatine kinase (CK), total (04/15/2025 9:17 AM CDT) CK 40 30 - 200 Units/L Blood 04/15/2025 9:17 AM CDT 04/15/2025 10:44 AM CDT Aliyah Sheth MD LAB BLOOD ORDERABL ES Final Result Performing Organization Address [facility]/ZIP Co de Phone Number [facility] [address] Department [place] [address] * Hepatitis C antibody Blood (12/26/2024 8:39 PM QA ARCHITECT) Hep C Ab Nonreactive Nonreactive Comment: Interpretive [...] revised on 2020. Blood 12/26/2024 8:39 PM QA ARCHITECT 12/26/2024 8:39 PM QA ARCHITECT Aliyah Sheth MD LAB MICROBIOLOGY - GENERAL ORDERABLES Final Result Performing Organization Address [facility] Co de Phone Number [facility] [address] Department [place] [address] * Screening Mammogram Bilateral W Artemio (08/02/2024 9:23 AM CDT) Anatomical Region Laterality Modality Breast Bilateral Mammography Narrative 08/04/2024 3:10 PM CDT Mammogram Technique: Bilateral Digital Breast Tomosynthesis, Bilateral C-view 2D Screening mammogram. Views obtained: bilateral craniocaudal and bilateral mediolateral oblique. Computer Aided Detection was performed. Mammogram Findings: The present examination has been compared to prior imaging studies performed at [facility] on 07/13/2021, 07/19/2022 and 08/01/2023. There [...] compared to prior imaging studies performed at [facility] on 07/13/2021, 07/19/2022 and 08/01/2023. There are scattered areas of fibroglandular density. There are post breast conservation therapy changes in the right breast. There is no suspicious abnormality in either breast. Impression: There is no mammographic evidence of malignancy. Annual screening mammography is recommended. OVERALL FINAL ASSESSMENT: BI-RADS CATEGORY 2: Benign. Jen Padgett MD IMG MAMMO PROCEDURES Fi nal Result from Last 3 Months or Most Recently Relevant to Health Maintenance Insurance [employer] OPEN ACCESS [facility] Communicator [place] [id number] [employer] CIGNA OPEN ACCESS CIGNA OPEN ACCESS Advance Directives For more information, please contact: [phone] * Full Code (Latest Code Status on File) Date Activated Date Inactivated Comments 07/01/2025 6:43 AM 07/01/2025 1:19 PM Care Teams Ambulance Paramedic Relationship Specialty Start Date End Date Annel Alicea PA [address] [place] [id number] PCP - General Family Practice 07/19/23 Jennifer Fisher MD [address] [place] [address] Radiation Oncologist Radiation Oncology 06/05/20 Jen Padgett MD [address] [address] Surgeon Surgical Oncology 06/05/20
--- OUTSIDE RECORDS SUMMARY | 2025-07-07 08:19 | XMS_ITS | Encounter Summary ---
Author Organization [facility] Address [address] [facility] [place] [address] Care Team Providers Care Lithographing Machine Operator Name Role Phone Annel Alicea Primary Care Provider + [phone] Ramone Mac MD Unavailable [phone] Encounter Details Date Type Department Care Team (Late Contact Info) Description 10/01/2024 Lab Requisition [facility] - DermPath Lab [address] [facility], [place] [address] Leigh Salter MD [address] [facility] 3 [place] [address] Social History Tobacco Use Types Packs/Day Years Used Date Smoking Tobacco: Never Smokeless Tobacco: Never Alcohol Use Standard Drinks/Week Comments Not Currently 0 (1 standard drink = 0.6 oz pur e alcohol) Comments Unknown Sex and Gender Information Value Date Recorded Sex Assigned at Not on file Legal Sex Female 5:28 PM MANAGER BRIDGE Gender Identity Not on file Sexual Orientation Not on file documented as of this encounter Plan of Treatment Not on file documented as of this encounter Procedures Procedure Name Priority Date/Time Associated Diagnosis Comments DERMATOPATHOLOGY Routine 10/01/2024 2:38 PM MANAGER BRIDGE documented in this encounter Results * DERMATOPATHOLOGY (10/01/2024 2:38 PM MANAGER BRIDGE) Case Report Dermatopathology Report Case: [id number] Authorizing Provider: Leigh Salter MD Collected: 10/01/2024 02:38 PM Ordering Location: [facility] - Received: 10/02/2024 03:48 PM DermPath Lab Pathologist: Reba El MD Specimen: Skin, left upper arm 10:11 AM [facility] DERMATOPATHOLOGY LABORATORY Final Diagnosis Specimen A. SKIN, left upper arm: VACUOLAR INTERFACE DERMATITIS WITH POST-INFLAMMATORY PIGMENT ALTERATION (L30.8) (see microscopic description and comment) 10:11 AM [facility] DERMATOPATHOLOGY LABORATORY at [address] [facility] Clinical History Favor AD/ICD vs AD less autoimmune 10:11 AM [facility] DERMATOPATHOLOGY LABORATORY Gross Description Specimen A: Received is one formalin filled container labeled with the patient's name and designated left upper arm. The specimen consists of a punch biopsy measuring 4x4x5 mm. Jar 0. 10:11 AM [facility] DERMATOPATHOLOGY LABORATORY Microscopic Description Specimen A. SKIN, [...] correlation is recommended. 10:11 AM [facility] DERMATOPATHOLOGY LABORATORY Disclaimer An external and internal positive and negative controls are appropriate for the histochemical, immunohistochemical and immunofluorescence stain(s) in this case (if any), except where stated explicitly. The performance characteristics of the stain(s) cited in this report were developed and its performance characteristic determined by the Dermatopathology Laboratory at [facility], directed by Dr. Nnamdi Bowles. These tests need not be, and therefore are not, approved by the [place] Food and Drug Administration. The tests are used for clinical purposes. Billing Codes Specimen Charges Stain Charges 68811 1 31112 11499 1 1 4 10:11 AM MANAGER BRIDGE DERMATOPATHOLOGY LABORATORY Embedded Images 4 10:11 AM MANAGER BRIDGE DERMATOPATHOLOGY LABORATORY Pathology/Cytolo gy TISSUE SPECIMEN FROM SKIN / Unknown 10/01/2024 2:38 PM MANAGER BRIDGE 10/02/2024 3:48 PM MANAGER BRIDGE Leigh Salter MD LAB - PATHOLOGY/CYTOLOGY OR DERABLES Final Result DERMATOPATHOLOGY LABORATORY [facility] - Department of Dermatology [facility] Medicine [address] [place] [address], [address] [phone] documented in this encounter Visit Diagnoses Not on filedocumented in this encounter Care Teams Lithographing Machine Operator Relationship Specialty Start Date End Date Annel Alicea PA [address] [place] [address] PCP - General Physician Pre Sales Technical Consultant 04/18/23 [place] [address] [place] [address] Surgeon Orthopedic Surgery 04/18/23 documented as of this encounter
[2025-07-07 08:41] LABS: INR 1.4; Prothrombin Time 17.3 Seconds (11.1-14.7)
[2025-07-07 08:42] LABS: Partial Thromboplastin Time 33.0 Seconds (22.3-36.8)
[2025-07-07 08:52] LABS: Anion Gap 8 mmol/L (4-12); Blood Urea Nitrogen 11 mg/dL (7-17); Calcium 7.4 mg/dL (8.4-10.2); Carbon Dioxide 29 mmol/L (22-30); Chloride 103 mmol/L (98-107); Estimated Glomerular Filt Rate > 60; Glucose 93 mg/dL (65-110); Potassium 3.0 mmol/L (3.4-5.0); Sodium 140 mmol/L (137-145)
== END 2025-07-07 07:45 | disposition home or self-care (01) ==
PROVIDERS: Anesthesiology; PCP Physician Assistant Medical; Visit Provider Urology
DX: Z01.818 Encounter for other preprocedural examination (principal); N20.0 Calculus of kidney; Z79.899 Other long term (current) drug therapy
CPT/HCPCS: 36415; 80048; 85610; 85730; 87086

== ENCOUNTER 2025-07-11 00:44 | Day surgery (SDC) | payer OTHER, SELFPAY ==
--- NOTE | 2025-07-04 07:56 | PM.HPGS ---
History of Present Illness History of Present Illness Consent: Risks, benefits, and alternatives have been discussed and questions answered. Patient agrees to proceed with procedure. Chief complaint: right renal and ureteral kidney stones Narrative: Ivania Yu is a 55 year old female with a history of recurrent urolithiasis. Recently she has had some right flank pain. Imaging shows a small 2 mm right proximal ureteral stone in a couple larger stones in her right kidney. After discussion of options she elects for right ESWL. She is aware the risk including need for additional procedures hematuria perinephric hematoma Review of Systems Review of Systems: All systems reviewed & are unremarkable except as noted in HPI and below PMFSH Past Medical History Medical History (Updated 07/04/25 @ 07:57 by Ulices Mcknight MD) Hepatic steatosis Seen on CT dated 06/27/25 History of colon polyps Dermatomyositis Diabetes mellitus Bilateral renal stones Cholelithiasis Hypertension Breast cancer invasive ductal cancer, s/p radiation, no chemo Skin cancer Surgical History Surgical History Hx of tonsillectomy History of bladder surgery bladder sling History of shoulder surgery Right Shoulder, 2012 History of hysterectomy 2016 with bilateral oopherectomy History of 1995, 1996 Family History Family History Mother Family history of diabetes mellitus in first degree relative Father Family history of lung cancer Sibling Family history of malignant neoplasm of brain Other Family history of cardiovascular disease Social History Social History Social History: 11/21/24 patient declined SDOH Smoking status: Never smoker Alcohol intake: current Alcohol use details: OCCASIONAL Substance use: never Substance use type: does not use Do You Feel Safe in your Home?: Yes Lack of Transportation: No Lack of Food: Never True Current Housing: I Have Housing Concerned About Future Housing: No Difficulty Paying Gas/Electric Bills: No Difficulty Paying for Meds: No Currently Unemployed: No Education: Associate Degree Difficulty w/ Childcare or Family Care: No Living arrangements: with family Occupation/Education: occupation Gender identity (if verbalized by the patient): Female Sexual Orientation (if Verbalized by the Patient): Straight or Heterosexual Spiritual care concerns: No Meds Home Medications and Allergies Home Medications ?Medication ?Instructions ?Recorded ?Confirmed ?Type anastrozole 1 mg tablet 1 mg PO DAILY 07/26/21 05/15/25 History cholecalciferol (vitamin D3) 25 25 mcg PO DAILY 07/26/21 05/15/25 History mcg (1,000 unit) capsule dyyjxqcm-cqkg-mvyb 8 mg-folic 400 1 tablet PO DAILY 07/26/21 05/15/25 History mcg-K 50 mcg-lutein 300 mcg tablet (Centrum [place] Women) azelastine 137 mcg (0.1 %) nasal 1 spray intranasal Q12H PRN 04/19/24 05/15/25 History spray Allergy Symptoms calcium 315 mg (as 1 tablet PO DAILY 04/19/24 05/15/25 History citrate)-vitamin D3 6.25 mcg (250 unit) tablet (Citracal + Vitamin D Maximum) semaglutide 1 mg/dose (4 mg/3 mL) 1 mg (0.75 mL) subcut WEEKLY #3 mL 10/25/24 05/15/25 Rx subcutaneous pen injector ([employer]) Held on 01/06/25. Instructions: Patient no longer taking clobetasol 0.05 % topical gel 1 applic topical DAILY 11/21/24 05/15/25 History hydroxychloroquine 200 mg tablet 200 mg PO BID 11/21/24 05/15/25 History (Plaquenil) metformin 500 mg tablet,extended 500 mg PO DAILY #90 tabs 01/28/25 05/15/25 Rx release 24 hr Held on 05/15/25. Instructions: Patient Condition prednisone 10 mg tablet 10 mg PO DAILY 01/28/25 05/15/25 History triamcinolone acetonide 0.1 % 1 applic topical BID 01/28/25 05/15/25 History topical cream celecoxib 200 mg capsule (Celebrex) 200 mg PO DAILY #30 caps 05/15/25 05/15/25 Rx cholestyramine 4 gram oral powder 4 g PO TID 05/15/25 05/15/25 History relmyx-vdxbufab-ifgjlzz 2 cap PO DIRECTED 05/15/25 05/15/25 History 36,000-114,000-180,000 unit capsule,delay rel (Creon) magnesium oxide 400 mg PO DAILY 05/15/25 05/15/25 History potassium chloride 20 mEq 40 meq (2 x 20 mEq) PO DAILY #60 05/30/25 Rx tablet,extended release (K-Tab) tabs furosemide 20 mg tablet (Lasix) 20 mg PO QAM PRN edema #10 tabs 06/19/25 Rx rifaximin 200 mg tablet (Xifaxan) 200 mg PO TID 06/19/25 History Allergies Allergy/AdvReac Type Severity Reaction Status Date / Time No Known Allergies Allergy Verified 05/15/25 09:42 Exam Const: General: no acute distress Resp: Effort & Inspection: normal respiratory effort GI: Inspection: non-distended GI Palp: No abdominal tenderness and No Guarding due to palpation present (GI) Auscultation: normal bowel sounds Assessment and Plan Assessment and plan (1) Right renal stone: Code(s): N20.0 - Calculus of kidney Status: Acute Assessment and Plan: Right ESWL
[2025-07-04 10:02] VITALS: BMI 25.0
--- NOTE | 2025-07-04 10:03 | PC.NURSE ---
Report to the Outpatient Waiting Room, entrance under the green pavilion located off [facility], at time _1000_ on date _[id number]_. Planned Procedure Time: _1200_.? Time changes happen often and if your time is changed the preop area will call you the afternoon before. - You and your visitor will be asked to self-screen and do not enter if you have any COVID symptoms. Please call surgeon if you need to reschedule. - A mask is optional within the hospital at this time. Patients may have clear liquids (water, carbonated beverages, clear teas, apple juice) until 3 hours prior to surgery with a maximum of 20 ounces. - No food from midnight until time of surgery and no smoking, or chewing tobacco (or any form of nicotine). No chewing gum, candy or mints. Take only the following medications with a SIP of water on the morning of surgery: ___None__ DO NOT STOP ANY OF YOUR OTHER PRESCRIPTION MEDICATIONS PRIOR TO SURGERY EXCEPT THE FOLLOWING Hold all vitamins and supplements for 3 days per anesthesiologist. Medications to discontinue per physician Date to take last dose Please no make-up, nail [place], hairspray, perfume, deodorant, or body powder the day of surgery.? No jewelry (including any body piercings) or valuables the day of surgery, leave them at home.? Please take a shower or bath the night before, or the morning of, surgery with an antibacterial soap.? Wear comfortable, loose fitting clothing.? - Jewelry must be removed prior to entering the operating room.? Rings and piercings that are not removed may be cut off. - The hospital will not accept responsibility for valuables.? - Please leave all valuables, including medications, at home the day of surgery. If you are going home after surgery, a licensed mobile lounge driver must drive you home.? - NO public transportation without another adult if you receive anesthesia. - We recommend that an adult stay with you for 24 hours following discharge. - We also recommend that you do not drive, make important decision, drink alcoholic beverages, or take any drugs that were not prescribed by your health care provider for at least 24 hours after your discharge time. Follow any additional instructions given to you from your surgeon. Telephone instructions given to __Ivania___and asked if any additional questions and then verbalized understanding. Patient advised to call surgeon office or pre surgery nurse liaison [phone] if any additional questions.
[2025-07-11] VITALS (7 sets, daily range): BP systolic 104–131; BP diastolic 62–73; PULSE 66–77; RESP 16–18; TEMP 36.2–36.6; O2SAT 96–100
--- NOTE | ~2025-07-11 | XR_ITS ---
EXAMINATION: XR abdomen/kub 1V DATE: 07/11/2025 09:26 INDICATION: Planned right-sided extracorporeal shockwave lithotripsy TECHNIQUE: A supine view of the abdomen on 2 radiographs was obtained. COMPARISON: 07/03/2025 FINDINGS: Cluster of multiple gallstones projecting over the right upper quadrant. More caudally there is an additional small cluster of likely small renal stones and likely lower pole calyx of the right kidney. There are 4 small phleboliths in the deep left pelvis. No dilated loops of gas-filled bowel to suggest obstruction. Lung bases are clear. Heart size is normal. Calcified inferior mediastinal lymph node consistent with old granulomatous disease. IMPRESSION: 1. Cluster of a few small renal stones or stone fragments in a lower pole calyx of the right kidney. 2. Cholelithiasis. Reviewed, dictated and finalized at location A.
--- NOTE | 2025-07-11 06:18 | WPDHPUPDATE1 ---
History and Physical Update Update Date/Time: 07/11/25 06:18 History and Physical has been reviewed, including an updated exam of the patient. There are NO changes in the patient's condition. Risks, benefits, and alternatives have been discussed and questions answered. Patient agrees to proceed with procedure.
--- NOTE | 2025-07-11 07:32 | ECG_ITS ---
Test Date: 2025-07-11 09:49:28 Measurements Intervals Pollock Rate: 73 P: 21 ME: 156 QRS: -6 QRSD: 99 T: 12 QT: 405 QTc: 448 Interpretive Statements SINUS RHYTHM NONSPECIFIC T-WAVE ABNORMALITY ABNORMAL ECG Compared to ECG 04/23/2024 08:18:18 Incomplete right bundle-branch block no longer present Electronically Signed On 07-11-2025 13:05:18 CDT by Bryce Tobin M.D.
[2025-07-11] MEDS: LACTATED RINGERS 1,000 ML 30 ML IV CONT ×2 (10:15→12:25)
--- NOTE | 2025-07-11 10:18 | WPDANESEPPF ---
Anes - Initial Pre Proc Eval Procedure: Operation Date: 07/11/25 11:00 Proposed Procedures p Right Extracorporeal Shock Wave Lithotripsy - Ulices Mcknight MD Date/Time: 07/11/25 10:18 Surgeon: Ulices Mcknight MD Pre Op Diagnosis: right renal and ureteral kidney stones Patient Data Age: 55 Gender: F Height: 1.68 m Weight: 70.4 kg Allergies Allergy/AdvReac Type Severity Reaction Status Date / Time No Known Allergies Allergy Verified 07/11/25 09:36 Home Medications ?Medication ?Instructions ?Recorded ?Confirmed ?Type cholecalciferol (vitamin D3) 25 25 mcg PO DAILY 07/26/21 07/11/25 History mcg (1,000 unit) capsule rzlychcx-txvz-zuca 8 mg-folic 400 1 tablet PO DAILY 07/26/21 07/11/25 History mcg-K 50 mcg-lutein 300 mcg tablet (Centrum Silver Women) azelastine 137 mcg (0.1 %) nasal 1 spray intranasal Q12H PRN 04/19/24 07/04/25 History spray Allergy Symptoms calcium 315 mg (as 1 tablet PO DAILY 04/19/24 07/11/25 History citrate)-vitamin D3 6.25 mcg (250 unit) tablet (Citracal + Vitamin D Maximum) clobetasol 0.05 % topical gel 1 applic topical DAILY 11/21/24 07/04/25 History hydroxychloroquine 200 mg tablet 200 mg PO BID 11/21/24 07/11/25 History (Plaquenil) triamcinolone acetonide 0.1 % 1 applic topical BID 01/28/25 07/04/25 History topical cream cholestyramine 4 gram oral powder 4 g PO TID 05/15/25 07/11/25 History rrhxtx-nsnxguyf-ooalwdy 2 cap PO DIRECTED 05/15/25 07/11/25 History 36,000-114,000-180,000 unit capsule,delay rel (Creon) furosemide 20 mg tablet (Lasix) 20 mg PO QAM PRN edema #10 tabs 06/19/25 07/04/25 Rx cyanocobalamin (vitamin B-12) 1,000 mcg PO DAILY 07/04/25 07/11/25 History 1,000 mcg tablet (Vitamin B-12) famotidine 20 mg tablet 20 mg PO BID 07/04/25 07/11/25 History omeprazole 20 mg capsule,delayed 20 mg PO DAILY 07/04/25 07/04/25 History release potassium chloride 20 mEq 40 meq (2 x 20 mEq) PO DAILY #60 07/04/25 07/11/25 Rx tablet,extended release (K-Tab) tabs zinc 25 mg tablet 25 mg PO DAILY 07/04/25 07/11/25 History Laboratory Tests 07/11/25 10:07 PT Pending INR Pending Patient hx anesthesia problems: none Family hx anesthesia problems: none Results Review: All pre-operative results and documents have been reviewed as part of the pre-operative evaluation. [facility] Past Medical History Medical History Hepatic steatosis Seen on CT dated 06/27/25 History of colon polyps Dermatomyositis Diabetes mellitus Bilateral renal stones Cholelithiasis Hypertension Breast cancer invasive ductal cancer, s/p radiation, no chemo Skin cancer Surgical History Surgical History Hx of tonsillectomy History of bladder surgery bladder sling History of shoulder surgery Right Shoulder, 2012 History of hysterectomy 2016 with bilateral oopherectomy History of 1995, 1996 Family History Family History Mother Family history of diabetes mellitus in first degree relative Father Family history of lung cancer Sibling Family history of malignant neoplasm of brain Other Family history of cardiovascular disease Social History Social History Social History: 11/21/24 patient declined SDRI Smoking status: Never smoker Alcohol intake: current Alcohol use details: OCCASIONAL Substance use: never Substance use type: does not use Do You Feel Safe in your Home?: Yes Lack of Transportation: No Lack of Food: Never True Current Housing: I Have Housing Concerned About Future Housing: No Difficulty Paying Gas/Electric Bills: No Difficulty Paying for Meds: No Currently Unemployed: No Education: Associate Degree Difficulty w/ Childcare or Family Care: No Living arrangements: with family Occupation/Education: occupation Gender identity (if verbalized by the patient): Female Sexual Orientation (if Verbalized by the Patient): Straight or Heterosexual Spiritual care concerns: No Anes - Eval Final PreProcedure Day of Procedure 07/11/25 10:18 Patient weight: normal Lungs: normal air movement Airway: Mallampati scale class II Neurological: alert and oriented Last oral intake: >/= 8 hours ASA classification: II Emergent: no Anesthetic plan: proceed Anesthesia type and monitoring: general LMA and standard monitoring Results Review: All pre-operative results and documents have been reviewed as part of the pre-operative evaluation. HTN, borderline DM not on meds, recent dx dermatomyositis w wt loss (80 pounds this year), pt w hx of breast ca s/p lumpectomy and radiation. Pt can walk 1-2 fos, no cp or sob. Informed Consent: The patient's anesthetic plan and its attendant risks and benefits were discussed with the patient/family/POA. Questions were solicited and answers provided to the satisfaction of the patient/family/POA.
[2025-07-11 10:30] LABS: INR 1.4; Prothrombin Time 16.7 Seconds (11.1-14.7)
[2025-07-11] MEDS: ceFAZolin 2 GM in SODIUM CHLORIDE 0.9% IV 50 ML 100 ML IVPB (11:15)
--- NOTE | 2025-07-11 11:33 | W.PM.PROC2 ---
Procedure Note - Detailed Date of Procedure 07/11/25 Pre-op Diagnosis Right renal stones Post-op Diagnosis Same Procedure Performed Right ESWL Surgeon Ulices Mcknight MD Anesthesia General Description of Procedure The patient was brought to the operative suite where she was placed in the supine position on the Dornier lithotripsy table. The focal point of the lithotripter was placed at a collection of small 3-5 stones coalesced in a right lower pole calyx. A total of 2500 shocks were delivered at a power setting of 4. There appeared to be good fragmentation of the stone. The patient tolerated the procedure well and was taken to the recovery room in good condition. Drains No Packing No Pathology None sent
== END 2025-07-11 13:40 | disposition home or self-care (01) ==
PROVIDERS: PCP Physician Assistant Medical; Visit Provider Urology
PROC: (CPT 50590; principal; 2025-07-11 11:00)
DX: N20.0 Calculus of kidney (principal); E11.9 Type 2 diabetes mellitus without complications
CPT/HCPCS: 50590; 36415; 74018; 82948; 85610; 93005; J0690; J2003; J2405; J2704; J3010; J7120

== ENCOUNTER 2025-07-22 12:59 | Outpatient (CLI) | payer OTHER, SELFPAY ==
--- NOTE | ~2025-07-22 | XR_ITS ---
Abdominal radiograph(s) INDICATION: Renal stones COMPARISON: X-ray 07/11/2025 CT 07/03/2025 TECHNIQUE: 2 views abdomen FINDINGS: Lung bases clear. Multiple gallstones as before. No definite renal stones identified. 3 radiopaque tablets within gastric fundus. Scattered colonic stool. Small bowel loops not well seen. Hepatomegaly. Pelvic phleboliths. No acute bony abnormality. IMPRESSION: 1. No renal stones definitely identified. Reviewed, dictated and finalized at location R.
--- OUTSIDE RECORDS SUMMARY | 2025-07-22 13:11 | XMS_ITS | Encounter Summary ---
Author Organization [facility] Address [address] [facility] [place] [address] Care Team Providers Care Iuss Acoustic Analyst Name Role Phone Annel Alicea Primary Care Provider [phone] Ramone Mac MD Unavailable Encounter Details Date Type Department Care Team (Late Contact Info) Description 10/01/2024 Lab Requisition [facility] - DermPath Lab [address] [facility], [place] [address] Leigh Salter MD [address] [facility] 3 [place] [address] Social History Tobacco Use Types Packs/Day Years Used Date Smoking Tobacco: Never Smokeless Tobacco: Never Alcohol Use Standard Drinks/Week Comments Not Currently 0 (1 standard drink = 0.6 oz pur e alcohol) Comments Unknown Sex and Gender Information Value Date Recorded Sex Assigned at Not on file Legal Sex Female 5:28 PM TRANSPLANT CASE MANAGER Gender Identity Not on file Sexual Orientation Not on file documented as of this encounter Plan of Treatment Not on file documented as of this encounter Procedures Procedure Name Priority Date/Time Associated Diagnosis Comments DERMATOPATHOLOGY Routine 10/01/2024 2:38 PM TRANSPLANT CASE MANAGER documented in this encounter Results * DERMATOPATHOLOGY (10/01/2024 2:38 PM TRANSPLANT CASE MANAGER) Case Report Dermatopathology Report Case: [id number] Authorizing Provider: Leigh Salter MD Collected: 10/01/2024 02:38 PM Ordering Location: [facility] - Received: 10/02/2024 03:48 PM DermPath Lab Pathologist: Reba El MD Specimen: Skin, left upper arm 10:11 AM [facility] DERMATOPATHOLOGY LABORATORY Final Diagnosis Specimen A. SKIN, left upper arm: VACUOLAR INTERFACE DERMATITIS WITH POST-INFLAMMATORY PIGMENT ALTERATION (L30.8) (see microscopic description and comment) 10:11 AM [facility] DERMATOPATHOLOGY LABORATORY at [address] [facility] Clinical History Favor AD/ICD vs AD less autoimmune 10:11 AM [facility] DERMATOPATHOLOGY LABORATORY Gross Description Specimen A: Received is one formalin filled container labeled with the patient's name and designated left upper arm. The specimen consists of a punch biopsy measuring 4x4x5 mm. Jar 0. 10:11 AM [facility] DERMATOPATHOLOGY LABORATORY Microscopic Description Specimen A. [...] favored. Clinicopathologic correlation is recommended. 10:11 AM [facility] DERMATOPATHOLOGY LABORATORY Disclaimer An external and internal positive and negative controls are appropriate for the histochemical, immunohistochemical and immunofluorescence stain(s) in this case (if any), except where stated explicitly. The performance characteristics of the stain(s) cited in this report were developed and its performance characteristic determined by the Dermatopathology Laboratory at [facility], directed by Dr. Nnamdi Bowles. These tests need not be, and therefore are not, approved by the [place] Food and Drug Administration. The tests are used for clinical purposes. Billing Codes Specimen Charges Stain Charges 68299 1 61538 18466 1 1 4 10:11 AM TRANSPLANT CASE MANAGER DERMATOPATHOLOGY LABORATORY Embedded Images 4 10:11 AM TRANSPLANT CASE MANAGER DERMATOPATHOLOGY LABORATORY Pathology/Cytolo gy TISSUE SPECIMEN FROM SKIN / Unknown 10/01/2024 2:38 PM TRANSPLANT CASE MANAGER 10/02/2024 3:48 PM TRANSPLANT CASE MANAGER Leigh Salter MD LAB - PATHOLOGY/CYTOLOGY OR DERABLES Final Result DERMATOPATHOLOGY LABORATORY [facility] - Department of Dermatology [facility] Medicine [address] [place] [address], [address] [phone] documented in this encounter Visit Diagnoses Not on filedocumented in this encounter Care Teams Iuss Acoustic Analyst Relationship Specialty Start Date End Date Annel Ailcea PA [address] [place] [address] PCP - General Physician Hr Associate 04/18/23 [place] [address] [place] [address] Surgeon Orthopedic Surgery 04/18/23 documented as of this encounter
--- OUTSIDE RECORDS SUMMARY | 2025-07-22 13:11 | XMS_ITS ---
Author Organization [facility] Address [address] [place] [address] Care Team Providers Care Farm Truck Driver Name Role Phone Jennifer Fisher MD Unavailable Jen Padgett MD Unavailable [phone] Annel Alicea Primary Care Provider [phone] Active Problems Problem Noted Date Diagnosed Date [...] from 05/25/2020:Stage IA(pT1mi, pN0(sn), cM0, G1, ER+, TN+, HER2-) - Signed by Jennifer Fisher MD [...]
--- OUTSIDE RECORDS SUMMARY | 2025-07-22 13:11 | XMS_ITS | Clinical Summary ---
Author Organization [facility] Address [address] [place] [address] Care Team Providers Care Retirement Village Manager Name Role Phone Jennifer Fisher MD Unavailable Jen Padgett MD Unavailable [phone] Annel Alicea Primary Care Provider [phone] Allergies No known active allergies Medications metroNIDAZOLE [...] day as needed 2 04/22/20 25 Active dwiwnxqz-wsb-qsfg c-vit K-lycop 400-20-300 mcg tablet Take by [...] from 05/25/2020:Stage IA(pT1mi, pN0(sn), cM0, G1, ER+, IL+, HER2-) - Signed by Jennifer Fisher MD on 06/05/2020 Basal cell carcinoma (BCC) of face 04/06/2016 Resolved Problems Problem Noted Date Diagnosed Date Resolved Date Encounter to discuss treatment options 07/14/2020 12/25/2024 Encounters Date Type Department Care Team Description 07/15/2025 Telephone [facility] Medicine Gastroenterology [address] [facility] 12th [place] [address] [place] [address] Jessi BatistaJAVIER 07/01/2025 7:30 AM CDT - 07/01/2025 8:00 AM CDT Surgery [facility] [address] [place] [phone] Ronn Sanders MD ESOPHAGOGASTRODUODENOSCOPY ULTRASOUND GUIDE LIMITED 07/01/2025 7:29 AM CDT Anesthesia Event [facility] [address] [place] [address] [phone] Yon Tariq MD 07/01/2025 6:15 AM CDT - 07/01/2025 9:14 AM CDT Hospital Encounter [facility] [address] [place] [address] [phone] Antolin Nobles MD Banerjee, Nikhil, MD Abnormal findings on diagnostic imaging of digestive system; Pancreatic atrophy Discharge Disposition: Discharge to home or self care from Last 3 Months Immunizations Immunization Administration Dates Next Due COVID-19 mRNA (MightyText) 0.3 m L (30 mcg) vaccine (12 [...] on file Legal Sex Female 11:27 AM TRANSPORTATION SECURITY OFFICER Gender Identity Not on file Sexual [...] GLUCOSE DEVICE Routine 07/01/2025 6:54 AM CDT HEPATITIS C ANTIBODY Routine 12/26/2024 8:39 PM TRANSPORTATION SECURITY OFFICER 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, adult onset (HCC) [...] 7:52 AM CDT Narrative PATHOLOGY [facility] - 07/02/2025 1:32 PM CDT [address] [address] Tele: Katelynn Olmos MD - Otr Tanker Truck Driver Note to Patients: This report may contain [...] PATHOLOGY REPORT Patient Name: IVANIA YU Address: [address] [place] [address] Gender: F : 1970 (Age: 55) Service: Gastro Location: [facility], Hospital #: [id number] Patient Type: [facility] SAME DAY SURGERY Taken: 07/01/2025 Received 07/01/2025 Reported: 07/02/2025 Physician(s): MD Sarah Ma MD DIAGNOSIS: Lymph node, periportal, fine-needle biopsy: - No evidence of malignancy dms/07/02/2025 13:32 Examining Pathologist: Herminio Dasilva MD, PhD [...] for metastatic carcinoma. Clerical Data Follows A; 74721, [id number] REPORT IMAGES AND/OR SCANNED DOCUMENTS ONLY VIEWABLE IN PDF FORMAT The immunohistochemical test(s) cited in this report, if any, was developed and its performance characteristics determined by [facility] Pathology Department. It has not been cleared or approved by the U.S. Food and Drug Administration. The FDA has determined that such clearance or approval is not necessary. This test is used for clinical purposes. It should not be regarded as investigational or for research. [facility] Laboratory is certified under the Clinical Laboratory [...] or completely in the following laboratories: [facility], [facility], [place], [place] [address] [place] [address], [address] [place] [address]. Ronn Sanders MD LAB PATHOLOGY ORDERABLES Darlene gunter Result PATHOLOGY [facility] Laboratory Receiving [address] [place], [place] [phone] * Upper EUS (07/01/2025 7:18 AM CDT) Anatomical Region Laterality Modality Other Narrative Procedure Note Ronn Sanders MD - 07/01/2025 7:18 AM CDT ENDOSCOPY LAB Patient Name: Ivania Yu Procedure Date: 07/01/2025 7:18 AM Admit Type: Outpatient Room: [facility] Date of : 1970 [...] * POCT glucose (07/01/2025 6:54 AM CDT) [facility] Glucose, POC 93 70 - 199 mg/dL Comment: For Glucose values <35 mg/dl when Hematocrit is >60 mg/dl,the test may not accurately detect significant hypoglycemia,and testing in the Laboratory should be considered if clinically indicated. Blood 07/01/2025 6:54 AM CDT 07/01/2025 6:54 AM CDT Antolin Nobles MD LAB POCT ORDERABLES - DEVICE Final Result [facility] [address] Department [place] [address] * Hepatitis C antibody Blood (12/26/2024 8:39 PM TRANSPORTATION SECURITY OFFICER) [facility] Hep C Ab Nonreactive Nonreactive Comment: Interpretive [...] revised on 2020. Blood 12/26/2024 8:39 PM TRANSPORTATION SECURITY OFFICER 12/26/2024 8:39 PM TRANSPORTATION SECURITY OFFICER us Aliyah Sheth MD LAB MICROBIOLOGY - GENERAL ORDERABLES Final Result [facility] [address] Department [place] [address] * Screening Mammogram Bilateral W Artemio (08/02/2024 9:23 AM CDT) Anatomical Region Laterality Modality Breast Bilateral Mammography Narrative 08/04/2024 3:10 PM CDT Mammogram Technique: Bilateral Digital Breast Tomosynthesis, Bilateral C-view 2D Screening mammogram. Views obtained: bilateral craniocaudal and bilateral mediolateral oblique. Computer Aided Detection was performed. Mammogram Findings: The present examination has been compared to prior imaging studies performed at [facility] on 07/13/2021, 07/19/2022 and 08/01/2023. There are [...] compared to prior imaging studies performed at [facility] on 07/13/2021, 07/19/2022 and 08/01/2023. There are [...] Most Recently Relevant to Health Maintenance Insurance [employer] [place] [address] [employer] OPEN [facility] Advance Directives For more information, please contact: [phone] * Full Code (Latest Code Status on File) Date Activated Date Inactivated Comments 07/01/2025 6:43 AM 07/01/2025 1:19 PM Care Teams Retirement Village Manager Relationship Specialty Start Date End Date Annel Alicea PA [address] [place] [address] PCP - General Family Practice 07/19/23 Jennifer Fisher MD [address] [facility] [address] [place] [address] Radiation Oncologist Radiation Oncology 06/05/20 Jen Padgett MD [address] [facility] [address] [place] [address] Surgeon Surgical Oncology 06/05/20
--- OUTSIDE RECORDS SUMMARY | 2025-07-22 13:11 | XMS_ITS | Clinical Summary ---
Author Organization [facility] [email or web address] Address [facility] [facility] [place] [address] Care Team Providers Care Supervisor Particleboard Name Role Phone Annel Alicea Primary Care Provider + [phone] Ramone Mac MD Unavailable [phone] Source Comments [facility],non-owned Affiliates and Associated Physician Practices is amultiple site organization consisting of ambulatory clinics and hospital sitesin [place], [place], [place] and [place]. This disclosure is being madepursuant to the Care Everywhere program and may not contain all information available regarding this patient. Last updated 18.[facility] [email or web address] Allergies No known active allergies Medications * Be aware that medications may not be up to date on this document. Alwaysverify current medications with the patient. anastrozole (Arimidex) 1 MG tablet Take 1 (one) tablet by mouth once daily 3 Active ergocalciferol (Drisdol) 1.25 MG (48104 UT) capsule Take 1 (one) capsule by [...] azelastine-flu ticasone (Dymista) 137-50 MCG/ACT nasal spray [place] into each nostril once daily Active Ozempic, [...] on file Legal Sex Female 5:28 PM [employer] Gender Identity Not on file Sexual Orientation [...] complete this topic Insurance [employer] Care Teams Supervisor Particleboard Relationship Specialty Start Date End Date Annel Alicea PA [facility] [place] [address] PCP - General Physician Feed Adviser 04/18/23 [place] [id number] [id number] Surgeon Orthopedic Surgery 04/18/23
== END 2025-07-22 13:00 | disposition home or self-care (01) ==
PROVIDERS: PCP Physician Assistant Medical; Visit Provider Urology
DX: N20.0 Calculus of kidney (principal)
CPT/HCPCS: 74018